=== PATIENT | female | born 1935 | race Caucasian/White ===

== ENCOUNTER 2016-10-21 20:55 | Inpatient (IN) ==
--- NOTE | 2016-10-21 21:51 | Emergency Department Note ---
Disposition Clinical Impression: NSTEMI (non-ST elevation myocardial infarction), Disequilibrium, Fall Disposition: Admitted As Inpatient Condition: Good Time of Disposition: 07:24 Dizziness HPI - General Chief Complaint: ED Dizziness Stated Complaint: dizziness Time Seen by Provider: 10/21/16 21:49 Source: patient, EMS Mode of arrival: ambulatory Limitations: no limitations Nursing Notes Reviewed: Yes Vital Signs Reviewed: Yes - History of Present Illness HPI Narrative: Patient is an 81-year-old female with past medical history of hypertension, hyperlipidemia, diabetes. She presents today due to disequilibrium, mild vertigo, difficulty with going from sitting to standing. This is been going on for about one week. Gradually worsening. She also states that she has had mild dizziness/fogginess. She says that the room is not spinning, but she feels lightheaded. It worsens mildly when she moves her head left and right. Denies any focal weaknesses, numbness, tingling. Denies any chest pain, shortness of breath, nausea, vomiting, fevers, diarrhea, abdominal pain. Denies any previous heart attack or stroke. is present with her and states that yesterday she was very confused which is unlike her. He was afraid that she may have had a stroke. They have not sought any medical care for the past week until today. - Related Data Allergies Allergy/AdvReac Type Severity Reaction Status Date / Time ampicillin Allergy Rash Verified 10/21/16 20:59 Constitutional: Denies: fever Eyes: Denies: eye pain, eye discharge ENT ED: Denies: ear pain, throat pain Cardiovascular: Denies: chest pain, palpitations Respiratory: Denies: cough, dyspnea, wheezes, hemoptysis, stridor Gastrointestinal: Denies: abdominal pain, nausea, vomiting, diarrhea, constipation Genitourinary: Denies: urgency, dysuria, frequency Musculoskeletal: Denies: back pain, neck pain, joint swelling Integumentary: Denies: rash, abrasion, lesions Neurological: Reports: abnormal gait, vertigo. Denies: headache, weakness, numbness, paresthesias, confusion Psychiatric: Denies: anxiety, depression Endocrine: Denies: fatigue Past Medical History - Past Medical History Attestation: Yes The following information was validated with the patient. Medical history: Reports: diabetes, hyperlipidemia, hypertension - Social History Smoking Status: Never smoker Alcohol use: Reports: none Drug use: Reports: none Physical Exam - General Limitations: no limitations General appearance: alert, in no apparent distress - Head Head exam: atraumatic, normocephalic, normal inspection - Eye Eye exam: Present: normal appearance, PERRL, EOMI - ENT ENT exam: normal exam, normal oropharynx, mucous membranes moist - Neck Neck exam: Present: normal inspection, full ROM, trachea midline - Chest Chest inspection: Present: normal inspection, symmetric chest wall rise - Respiratory Respiratory exam: Present: normal lung sounds bilaterally - Cardiovascular Cardiovascular exam: Present: regular rate, normal rhythm, normal heart sounds - Abdominal Exam Abdominal exam: Present: soft, Non-Tender. Absent: tenderness, distention, guarding, rebound, rigidity - Extremities Exam Extremities exam: Present: normal inspection, full ROM. Absent: tenderness, pedal edema - Back Exam Back exam: Present: normal inspection, full ROM. Absent: tenderness - Neurological Exam Neurological exam: Present: alert, oriented X3, CN II-XII intact. Absent: motor sensory deficit - Psychiatric Psychiatric exam: Present: normal affect, normal mood - Skin Skin exam: Present: warm, dry, intact, normal color Course Course Narrative: On my exam, patient vitals were within normal limits. Physical exam showed no focal neurologic deficits. NIH is 0. Due to complaint of dizziness, abnormal gait, will obtain MRI of the head. This is not an acute event and has been going on for about a week. We will also obtain cardiac workup and basic blood work for further evaluation. She was happy and agreeable with this plan. 23:56 Leukocytosis present. elevated trop. WIll give aspirin. Patient still has no chest pain or shortness of breath. Waiting on MRI. MRI negative for any acute intracranial abnormality. ADmitted for NSTEMI. Accepted by Dr. Gallagher. Lovenox 40mg BID started. Vital Signs Temperature 98.5 F 10/21/16 20:57 Pulse Rate 84 10/21/16 20:57 Respiratory Rate 16 10/21/16 20:57 Blood Pressure 137/66 10/21/16 20:57 O2 Sat by Pulse Oximetry 92 L 10/21/16 20:57 Temperature 97.7 F 10/22/16 05:31 Pulse Rate 73 10/22/16 05:31 Respiratory Rate 20 10/22/16 05:31 Blood Pressure 128/81 10/22/16 05:31 O2 Sat by Pulse Oximetry 95 10/22/16 05:31 Oxygen Delivery Oxygen Delivery Room Air Dizziness - MDM Narrative Medical decision making narrative: On my exam, patient vitals were within normal limits. Physical exam showed no focal neurologic deficits. NIH is 0. Due to complaint of dizziness, abnormal gait, will obtain MRI of the head. This is not an acute event and has been going on for about a week. We will also obtain cardiac workup and basic blood work for further evaluation. She was happy and agreeable with this plan. 23:56 Leukocytosis present. elevated trop. WIll give aspirin. Patient still has no chest pain or shortness of breath. Waiting on MRI. MRI negative for any acute intracranial abnormality. ADmitted for NSTEMI. Accepted by Dr. Gallagher. Lovenox 40mg BID started. - Medical Records Medical records reviewed: Yes I reviewed the patient's medical records. - Lab Data Lab results reviewed: Yes I reviewed the patient's lab results. Result diagrams: 10/21/16 21:59 10/21/16 21:59 Lab Results 10/21/16 10/21/16 10/21/16 Range/Units 21:59 21:59 21:59 WBC 16.3 H (4.3-11.1) K/mcL RBC 3.62 L (3.82-4.97) M/mcL Hgb 11.8 (11.5-15.4) g/dL Hct 36.3 (35.3-44.9) % MCV 100.3 H (83.0-100.0) fL MCH 32.6 (28.0-33.3) pg MCHC 32.5 (31.6-35.5) g/dL RDW 13.2 (11.5-14.5) % Plt Count 151 (140-400) K/mcL MPV 11.3 (9.4-12.4) fL Immature Gran % 1.2 (0-4) % Seg Neutrophils % 90.1 % Lymphocytes % 3.4 % Monocytes % 5.2 % Eosinophils % 0.0 % Basophils % 0.1 % Neutrophils # 14.7 H (1.6-8.9) K/mcL Lymphocytes # 0.6 (0.6-4.6) K/mcL Monocytes # 0.8 (0.0-1.3) K/mcL Eosinophils # 0.0 (0.0-0.6) K/mcL Basophils # 0.0 (0.0-0.2) K/mcL PT 14.1 H (9.4-12.1) Seconds INR 1.3 APTT 28.5 (26.0-36.0) Seconds Sodium 135 L (136-145) mEq/L Potassium 4.0 (3.5-4.5) mEq/L Chloride 102 (98-109) mEq/L Carbon Dioxide 22 (19-29) mEq/L BUN 25 H (7-20) mg/dL Creatinine 1.04 (0.57-1.11) mg/dL Est GFR ( Amer) > 60 (> 60) Est GFR (Non-Af Amer) 51 L (> 60) BUN/Creatinine Ratio 24 (6-26) Glucose 237 H (70-99) mg/dL Calculated Osmolality 292 (280-300) Calcium 9.0 (8.6-10.8) mg/dL Troponin I (0-0.03) ng/mL 10/21/16 Range/Units 21:59 WBC (4.3-11.1) K/mcL RBC (3.82-4.97) M/mcL Hgb (11.5-15.4) g/dL Hct (35.3-44.9) % MCV (83.0-100.0) fL MCH (28.0-33.3) pg MCHC (31.6-35.5) g/dL RDW (11.5-14.5) % Plt Count (140-400) K/mcL MPV (9.4-12.4) fL Immature Gran % (0-4) % Seg Neutrophils % % Lymphocytes % % Monocytes % % Eosinophils % % Basophils % % Neutrophils # (1.6-8.9) K/mcL Lymphocytes # (0.6-4.6) K/mcL Monocytes # (0.0-1.3) K/mcL Eosinophils # (0.0-0.6) K/mcL Basophils # (0.0-0.2) K/mcL PT (9.4-12.1) Seconds INR APTT (26.0-36.0) Seconds Sodium (136-145) mEq/L Potassium (3.5-4.5) mEq/L Chloride (98-109) mEq/L Carbon Dioxide (19-29) mEq/L BUN (7-20) mg/dL Creatinine (0.57-1.11) mg/dL Est GFR ( Amer) (> 60) Est GFR (Non-Af Amer) (> 60) BUN/Creatinine Ratio (6-26) Glucose (70-99) mg/dL Calculated Osmolality (280-300) Calcium (8.6-10.8) mg/dL Troponin I 0.17 H* (0-0.03) ng/mL - Radiology Data Radiology results reviewed: Yes I reviewed the patient's radiology results. Chest X-Ray 10/21/16 21:50 IMPRESSION: Borderline cardiomegaly and probable COPD, no superimposed acute pulmonary process. D/ / Landen Simons MD / Landen Simons MD Interpreting Provider: Landen Simons MD Brain MRI 10/22/16 00:10 IMPRESSION: Volume loss with mild chronic white matter microvascular ischemic change. D/ / Garry Escobar MD / Garry Escobar MD Interpreting Provider: Garry Escobar MD - EKG Data EKG attestation: Yes I reviewed and interpreted this EKG. EKG results narrative: 10/21/16 at 21:10. Normal sinus rhythm. Rate 80. NM interval 100. QTC 423. QRS 85. Mild left axis deviation. Possible right bundle branch block evident in V1, V2. No acute ST elevation or depression. Unchanged from previous EKG in . Critical Care Time Critical Care Time: Yes Total Critical Care Time: 40 Attestation: Critical care performed: Time is exclusive of separately billable procedures. Time includes: direct patient care, patient reassessment, coordination of patient care, interpretation of data (laboratory data, radiology data, and respiratory data), review of patient's medical records, medical consultation and documentation of patient care. Procedures included in critical care time: Procedures excluded from critical care time: S.Huber - [place] Situation: Demographics, MOA Background: Presenting Complaint, Relevant PMH, Meds, & Allergies Assessment: Vital Signs, Course and respsone to treatment, Exam Concerns, Patient/Family Expectation, Pertinant Lab Results, Outstanding Labs Recommendation: Barrier(s) to disposition, Recommendation based on pending studies, treatments, or consults SMagaly Report Given to: Dr. Gallagher Attestation Statement - Attestation Attestation: I, Lloyd Valles MD, personally performed a history and physical exam of the patient and discussed their management with the resident. I reviewed the resident's note and agree with the documented findings, medical decision making , and plan of care. 81-year-old female who presents to the emergency department with a complaint of some dizziness and vertigo and difficulty with balance. She states this started about a week ago seems to just be gradually getting worse. She does admit to some mild headache. No tinnitus. No fever. No rash or stiff neck. No blurred vision or double vision. No difficulty with speech or swallowing. No focal numbness tingling or weakness. Patient states that since the symptoms started she has been unable to walk without assistance. Prior to the symptoms she was able to ambulate without difficulty. She denies any chest pain or palpitations or shortness of breath. No nausea or vomiting or diarrhea. No abdominal pain. No urinary symptoms. On examination patient is a well-developed well-nourished elderly female in no acute distress. She is alert and oriented 3. There is no cyanosis or diaphoresis. Neck is supple and nontender with full range of motion. She does have a left carotid bruit. Chest is nontender to palpation. Breath sounds are clear and equal bilaterally. Heart regular rate and rhythm. Abdomen soft and nontender with normal bowel sounds. Equal solar manager strength bilaterally. No gross focal neurological deficits. Labs reviewed. Patient noted to have an elevated troponin at 0.17. No acute changes on EKG. Chest x-ray shows borderline cardiomegaly and COPD no acute abnormality. MRI of the brain showed some chronic microvascular ischemic changes but no acute abnormality. Due to the elevated troponin and we will consult the hospitalist for admission.
[2016-10-21 22:06] LABS: Basophils % 0.1 %; Hematocrit 36.3 % (35.3-44.9); Hemoglobin 11.8 g/dL (11.5-15.4); Immature Granulocytes % 1.2 % (0-4); Lymphocytes # 0.6 K/mcL (0.6-4.6); Lymphocytes % 3.4 %; Mean Corpuscular HGB Conc 32.5 g/dL (31.6-35.5); Mean Corpuscular Hemoglobin 32.6 pg (28.0-33.3); Mean Corpuscular Volume 100.3 fL (83.0-100.0); Mean Platelet Volume 11.3 fL (9.4-12.4); Monocytes # 0.8 K/mcL (0.0-1.3); Monocytes % 5.2 %; Neutrophils # 14.7 K/mcL (1.6-8.9); Platelet Count 151 K/mcL (140-400); Red Blood Count 3.62 M/mcL (3.82-4.97); Red Cell Distribution Width 13.2 % (11.5-14.5); Segmented Neutrophils % 90.1 %
[2016-10-21 22:10] LABS: INR 1.3; Prothrombin Time 14.1 Seconds (9.4-12.1)
[2016-10-21 22:12] LABS: Activated Partial Thrombo Time 28.5 Seconds (26.0-36.0)
[2016-10-21 22:18] LABS: BUN/Creatinine Ratio 24 (6-26); Blood Urea Nitrogen 25 mg/dL (7-20); Carbon Dioxide 22 mEq/L (19-29); Chloride 102 mEq/L (98-109); Glucose 237 mg/dL (70-99); Osmolality,Calculated 292 (280-300); Sodium 135 mEq/L (136-145); eGFR For African Americans > 60 (> 60); eGFR For Non-African Americans 51 (> 60)
[2016-10-21] MEDS ORDERED: Aspirin 325 MG TABLET PO ONE (22:50)
[2016-10-22] MEDS ORDERED: Nitroglycerin 0.4 MG TAB.SUBL SL PRN (05:31)
[2016-10-22] MEDS ORDERED: Naloxone 0.4 MG/ML INJ IVP PRN (05:31)
[2016-10-22] MEDS ORDERED: *HR* Morphine 2 MG/ML SYRINGE IVP PRN ×2 (05:31→14:07)
[2016-10-22] MEDS ORDERED: Dextrose Gel 15 GM PO PRN ×2 (05:31)
[2016-10-22] MEDS ORDERED: Acetaminophen 325 MG TABLET PO PRN (05:31)
[2016-10-22] MEDS ORDERED: D5% in Water 1,000 ML IV PRN (05:31)
[2016-10-22] MEDS ORDERED: *HR* Dextrose 50 % in Water (Syg) 50 ML SYRINGE IVP PRN (05:31)
--- NOTE | 2016-10-22 05:57 | Internal Med History&Physical ---
<Shady Mcgowan - Last Filed: 10/22/16 05:48> Date of Encounter: 10/22/16 Time of Encounter: 04:30 Assessment and Plan (1) Sepsis Status: Acute Patient presents with elevated white count of 16.3 with left shift as well as tachypnea at 20. Given patient's presentation of weakness and confusion this is concerning for sepsis of currently unknown etiology (currently suspicious for urinary tract infection). We will hold fluids until further assessment patient cardiac function is made 1 given empiric ceftriaxone for suspected UTI We will obtain lactic acid Qualifiers: Sepsis type: sepsis due to unspecified organism Qualified Code(s): A41.9 - Sepsis, unspecified organism (2) Elevated troponin Status: Acute Patient has elevated troponin of 0.17 admission in size on EKG concerning for decreased pulses and [address] depressions in V2 through V6. This elevation troponins could be due to intrinsic heart disease/coronary artery disease, sepsis, undiagnosed arrhythmia, stroke, or other currently undiagnosed problem. We will continue to trend troponins We will obtain EKG later in the morning We will obtain echocardiogram 40 mg Lovenox twice a day Continuous telemetry Consider cardiology consult if continued cardiac concerns (3) Suspected UTI Status: Acute Patient description of generalized weakness and confusion which is concerning for a patient in her 80s for possible infection. Obtain UA Empirically start ceftriaxone (4) Disequilibrium Status: Acute Patient describes 3-4 days of disequilibrium when she stands and feeling of walking backwards We will obtain MRA of brain/neck Meclizine 12 mg once Meclizine 12.5 mg 3 times a dayConsider neurology consult if continued conservative for disequilibrium or abnormal findings on MRA (5) DVT prophylaxis Status: Acute Patient was given 40 mg Lovenox twice a day due to concern of NSTEMI Internal Medicine - H&P: HPI Chief complaint: Generalized weakness and dysequilibrium Admitted From: Home Plans for Post Hospital Care: Home History of present illness: Ms. Rockwell is a 81 year old female with prior medical history of diabetes, hypertension, and hyperlipidemia who presents to [place] after 3 days of worsening generalized weakness, disequilibrium, and mild confusion. The patient states that starting 3 days ago she began having some disequilibrium and describes "stepping backwards" when she stands up or tries to walk. She admits that she has fallen last time being Wednesday but does not recall hitting her head or body parts. She describes feeling as being off balance, but not of the room spinning. She reports she has had a cough but this is been for quite some time, denies shortness of breath, denies chest pain, denies palpitations, denies fever, denies tinnitus, reports exertional dyspnea, denies dysuria reports orthostatic dizziness, reports lightheadedness, and possible nausea ( patient and her disagree on this). Past Med Surg Social Fam HX - Past Medical History Medical history: diabetes, hyperlipidemia, hypertension - Social History Smoking Status: Never smoker Alcohol use: none Drug use: none Internal Medicine - H&P: Meds Calcium Carbonate/Vitamin D3 [Calcium 500 + Vit D Caplet] 1 each PO DAILY [History] Cetirizine HCl [Zyrtec] 10 mg PO DAILY 10/22/16 [History] Levothyroxine Sodium 50 mcg PO DAILY 10/22/16 [History] Metformin HCl [Glucophage] 1,000 mg PO BID 10/22/16 [History] Metoprolol XL (24 HR) Succ [Toprol Xl] 25 mg PO DAILY 10/22/16 [History] Multivit-Min/FA/Calcium/Vit K1 [Hm One Daily Women's 50+] 1 each PO DAILY [History] Pravastatin Sodium [Pravachol] 40 mg PO DAILY 10/22/16 [History] SitaGLIPtin [Januvia] 100 mg PO DAILY 10/22/16 [History] Aspirin 81 mg PO DAILY tab.chew 10/23/16 [Rx] Magnesium Oxide [Mag-Ox] 400 mg PO DAILY #30 tablet 10/23/16 [Rx] Apixaban [Eliquis] 2.5 mg PO BID tablet 10/27/16 [Rx] Metoprolol [Lopressor] 25 mg PO BID tablet 10/27/16 [Rx] Allergies ampicillin Allergy (Verified 10/22/16 08:15) Rash All Systems PM: A 10-system review of systems was performed and is negative for pertinent findings except as documented above in the HPI. - Constitutional Vitals: Temp Pulse Resp BP Pulse Ox 98.5 F 73 0 0/0 94 L 10/21/16 20:57 10/22/16 01:32 10/22/16 04:21 10/22/16 04:21 10/22/16 01:32 Exam: General: Cooperative, pleasant, no acute distress, alert and oriented 3, answers questions appropriately Head: Normocephalic, atraumatic Eye: Conjunctiva pink, sclera anicteric, EOMI, PERRL Neck: Supple, trachea midline, mucosa moist, no LAD palpated Respiratory: No accessory muscle usage, clear to auscultation bilaterally, no wheezes/rhonchi/rales appreciated Cardiovascular: Regular rate and rhythm, S1 and S2 present, no murmurs/rubs/ gallops/clicks appreciated GI/abdominal: Nondistended, nontender, soft, normal bowel sounds, no peritoneal signs Extremities: No calf tenderness, noncyanotic, no pedal edema appreciated, warm, lower extremity pulses palpable and symmetrical Neurological: Alert and oriented 3, no facial droop, no focal deficits, cranial nerves II through XII intact, sensation intact bilaterally to light touch, check intact in upper and lower extremities, rapid alternating smoothened with a tremor, finger-nose accurate and smooth, pronator drift normal , heel to prajapati smooth and accurate Skin: Dry, intact, normal color Internal Med - H&P Results - Labs CBC & Chem 7: 10/21/16 21:59 10/21/16 21:59 <Ez Gallagher - Last Filed: 10/28/16 01:46> Assessment and Plan (1) Postural dizziness with presyncope Status: Acute . (2) Demand myocardial infarction Status: Acute . (3) Non-ST elevation myocardial infarction (NSTEMI) due to mismatch of myocardial oxygen supply and demand Status: Acute . (4) Elevated troponin I measurement Status: Acute . (5) HTN (hypertension) Status: Chronic . Qualifiers: Hypertension type: essential hypertension Qualified Code(s): I10 - Essential (primary) hypertension (6) HLD (hyperlipidemia) Status: Chronic . Qualifiers: Hyperlipidemia type: mixed hyperlipidemia Qualified Code(s): E78.2 - Mixed hyperlipidemia (7) Type 2 diabetes mellitus Status: Chronic . Qualifiers: Diabetes mellitus complication status: with unspecified complications Diabetes mellitus senior care insulin use: without senior care use Qualified Code( s): E11.8 - Type 2 diabetes mellitus with unspecified complications (8) SIRS (systemic inflammatory response syndrome) Status: Acute . (9) Acute kidney injury superimposed on chronic kidney disease Status: Acute . (10) COPD suggested by initial evaluation Status: Acute . (11) Disequilibrium Status: Acute . (12) Fall Status: Acute . Qualifiers: Encounter type: initial encounter Qualified Code(s): W19.XXXA - Unspecified fall, initial encounter (13) Hypothyroidism Status: Chronic .. Qualifiers: Hypothyroidism type: acquired Qualified Code(s): E03.9 - Hypothyroidism, unspecified (14) COPD with hypoxia Status: Chronic . (15) Macrocytosis without anemia Status: Chronic . Internal Medicine - H&P: HPI Admitted From: Emergency Dept History of present illness: Ms. Rockwell is a 81 year old female is admitted to [facility] via the emergency department with chief complaint of "dizziness", she describes difficulty standing, walking with balance difficulty and mental fogginess for approximately one week. Her disequilibrium with mild vertigo and difficulty with moving from sitting to standing positions with inducible postural lightheadness/presyncope was concerning. The patient's age and past medical history including risk factors of hypertension hyperlipidemia and diabetes placed her at increased risks for a cardiovascular insult. Indeed initial screening studies found a troponin elevated at 0.17 suggesting the potential for demand ischemic event and type II non-ST elevation myocardial infarction versus acute SECOND OPERATOR insult. Workup and treatments will proceed comprehensively. The patient was visited and interviewed and examined. I examined this patient and my medical decision-making was reviewed with the Resident Physician, Dr. Shady Mcgowan. For this encounter, I have reviewed the documentation, treatment plan, and medical decision making. I agree with the documented findings, disposition and treatment plan as described except to the extent set forth below. Cumulative laboratory and radiographic database was reviewed, considered and discussed. Given the patient's presenting concerns, past medical history, clinical findings and symptoms, she is admitted at this time to undergo further evaluation and disposition. All Systems PM: A 10-system review of systems was performed and is negative for pertinent findings except as documented above in the HPI. - Constitutional Vitals: Temp Pulse Resp BP Pulse Ox 97.7 F 55 16 112/66 96 10/27/16 15:47 10/27/16 15:47 10/27/16 15:47 10/27/16 15:47 10/27/16 15:47 Internal Med - H&P Results - Labs CBC & Chem 7: 10/27/16 04:28 10/27/16 04:28 Labs: Short CBC 10/27/16 Range/Units 04:28 WBC 7.9 (4.3-11.1) K/mcL Hgb 11.1 L (11.5-15.4) g/dL Hct 36.3 (35.3-44.9) % Plt Count 182 (140-400) K/mcL BMP 10/27/16 04:28 Sodium 139 Potassium 4.3 Chloride 108 Carbon Dioxide 24 BUN 17 Creatinine 0.73 Glucose 122 H Calcium 7.8 L Abnormal lab results RBC 3.50 M/mcL (3.82-4.97) L 10/27/16 04:28 Hgb 11.1 g/dL (11.5-15.4) L 10/27/16 04:28 MCV 103.7 fL (83.0-100.0) H 10/27/16 04:28 MCHC 30.6 g/dL (31.6-35.5) L 10/27/16 04:28 PT 13.7 Seconds (9.4-12.1) H 10/22/16 06:56 Glucose 122 mg/dL (70-99) H 10/27/16 04:28 POC Glucose 108 (58-89) H 10/26/16 21:22 Hemoglobin A1c 6.6 % (-5.6) H 10/22/16 06:56 Calcium 7.8 mg/dL (8.6-10.8) L 10/27/16 04:28 Magnesium 1.5 mg/dL (1.6-2.6) L 10/23/16 19:33 Troponin I 0.08 ng/mL (0-0.03) H* 10/24/16 08:46 Albumin 3.0 g/dL (3.5-5.0) L 10/22/16 06:56 Globulin 3.9 g/dL (2.4-3.5) H 10/22/16 06:56 Albumin/Globulin Ratio 0.8 (1.1-2.2) L 10/22/16 06:56 Urine Clarity Turbid (Clear) A 10/22/16 06:33 Urine Protein 100 mg/dL (Neg-Trace) H 10/22/16 06:33 Urine Ketones 15 mg/dL (Negative) H 10/22/16 06:33 Urine Blood Large (Negative) H 10/22/16 06:33 Urine Nitrite Positive (Negative) A 10/22/16 06:33 Ur Leukocyte Esterase Large (Negative) H 10/22/16 06:33 Urine Microscopic RBC 15-30 per hpf (0-3) H 10/22/16 06:33 Urine Microscopic WBC TNTC per hpf (0-3) H 10/22/16 06:33 Ur Squamous Epith Cells Many per lpf (None-Few) H 10/22/16 06:33 Urine Bacteria Many per hpf (None-Few) H 10/22/16 06:33 Laboratory Last Values WBC 7.9 K/mcL (4.3-11.1) 10/27/16 04:28 RBC 3.50 M/mcL (3.82-4.97) L 10/27/16 04:28 Hgb 11.1 g/dL (11.5-15.4) L 10/27/16 04:28 Hct 36.3 % (35.3-44.9) 10/27/16 04:28 MCV 103.7 fL (83.0-100.0) H 10/27/16 04:28 MCH 31.7 pg (28.0-33.3) 10/27/16 04:28 MCHC 30.6 g/dL (31.6-35.5) L 10/27/16 04:28 RDW 13.3 % (11.5-14.5) 10/27/16 04:28 Plt Count 182 K/mcL (140-400) 10/27/16 04:28 MPV 12.0 fL (9.4-12.4) 10/27/16 04:28 Immature Gran % 0.7 % (0-4) 10/26/16 11:34 Seg Neutrophils % 75.6 % 10/26/16 11:34 Lymphocytes % 14.0 % 10/26/16 11:34 Monocytes % 6.4 % 10/26/16 11:34 Eosinophils % 2.9 % 10/26/16 11:34 Basophils % 0.4 % 10/26/16 11:34 Neutrophils # 6.2 K/mcL (1.6-8.9) 10/26/16 11:34 Lymphocytes # 1.2 K/mcL (0.6-4.6) 10/26/16 11:34 Monocytes # 0.5 K/mcL (0.0-1.3) 10/26/16 11:34 Eosinophils # 0.2 K/mcL (0.0-0.6) 10/26/16 11:34 Basophils # 0.0 K/mcL (0.0-0.2) 10/26/16 11:34 PT 13.7 Seconds (9.4-12.1) H 10/22/16 06:56 INR 1.3 10/22/16 06:56 APTT 34.5 Seconds (26.0-36.0) 10/22/16 06:56 Sodium 139 mEq/L (136-145) 10/27/16 04:28 Potassium 4.3 mEq/L (3.5-4.5) 10/27/16 04:28 Chloride 108 mEq/L (98-109) 10/27/16 04:28 Carbon Dioxide 24 mEq/L (19-29) 10/27/16 04:28 BUN 17 mg/dL (7-20) 10/27/16 04:28 Creatinine 0.73 mg/dL (0.57-1.11) 10/27/16 04:28 Est GFR ( Amer) > 60 (> 60) 10/27/16 04:28 Est GFR (Non-Af Amer) > 60 (> 60) 10/27/16 04:28 BUN/Creatinine Ratio 23 (6-26) 10/27/16 04:28 Glucose 122 mg/dL (70-99) H 10/27/16 04:28 POC Glucose 108 (58-89) H 10/26/16 21:22 Est Mean Plasma Glucose 143 mg/dl 10/22/16 06:56 Hemoglobin A1c 6.6 % (-5.6) H 10/22/16 06:56 Calculated Osmolality 291 (280-300) 10/27/16 04:28 Lactic Acid 1.9 mmol/L (0.5-2.2) 10/22/16 06:56 Calcium 7.8 mg/dL (8.6-10.8) L 10/27/16 04:28 Phosphorus 3.1 mg/dL (2.3-4.7) 10/22/16 06:56 Magnesium 1.5 mg/dL (1.6-2.6) L 10/23/16 19:33 Total Bilirubin 0.7 mg/dL (0.2-1.2) 10/22/16 06:56 AST 17 Units/L (5-34) 10/22/16 06:56 ALT 15 Units/L (0-55) 10/22/16 06:56 Alkaline Phosphatase 60 Units/L (38-126) 10/22/16 06:56 Troponin I 0.08 ng/mL (0-0.03) H* 10/24/16 08:46 Serum Total Protein 6.9 g/dL (6.0-8.3) 10/22/16 06:56 Albumin 3.0 g/dL (3.5-5.0) L 10/22/16 06:56 Globulin 3.9 g/dL (2.4-3.5) H 10/22/16 06:56 Albumin/Globulin Ratio 0.8 (1.1-2.2) L 10/22/16 06:56 Triglycerides 100 mg/dL (< 150) 10/22/16 06:56 Cholesterol 150 mg/dL (< 200) 10/22/16 06:56 LDL Cholesterol, Calc 79 mg/dL (0-99) 10/22/16 06:56 VLDL Cholesterol, Calc 20 mg/dL (< 31) 10/22/16 06:56 HDL Cholesterol 51 mg/dL (40-59) 10/22/16 06:56 Cholesterol/HDL Ratio 2.9 (0-4.9) 10/22/16 06:56 Vitamin B12 607 pg/mL (213-816) 10/22/16 13:33 Folate 17.2 ng/mL (7.0-31.4) 10/22/16 13:33 TSH 1.087 mcIU/mL (0.350-4.840) 10/22/16 06:56 Urine Color Dark Yellow (Yellow) 10/22/16 06:33 Urine Clarity Turbid (Clear) A 10/22/16 06:33 Urine pH 5.5 pH Units (5.0-8.0) 10/22/16 06:33 Ur Specific [place] 1.024 (1.010-1.025) 10/22/16 06:33 Urine Protein 100 mg/dL (Neg-Trace) H 10/22/16 06:33 Urine Glucose (UA) Normal mg/dL (Normal) 10/22/16 06:33 Urine Ketones 15 mg/dL (Negative) H 10/22/16 06:33 Urine Blood Large (Negative) H 10/22/16 06:33 Urine Nitrite Positive (Negative) A 10/22/16 06:33 Urine Bilirubin Negative (Negative) 10/22/16 06:33 Urine Urobilinogen Normal mg/dL (Normal) 10/22/16 06:33 Ur Leukocyte Esterase Large (Negative) H 10/22/16 06:33 Urine Microscopic RBC 15-30 per hpf (0-3) H 10/22/16 06:33 Urine Microscopic WBC TNTC per hpf (0-3) H 10/22/16 06:33 Ur Squamous Epith Cells Many per lpf (None-Few) H 10/22/16 06:33 Urine Bacteria Many per hpf (None-Few) H 10/22/16 06:33 Hyaline Casts None Seen per lpf (None-Few) 10/22/16 06:33 - Impressions Chest X-Ray 10/21/16 21:50 IMPRESSION: Borderline cardiomegaly and probable COPD, no superimposed acute pulmonary process. D/ / Landen Simons MD / Landen Simons MD Interpreting Provider: Landen Simons MD Brain MRI 10/22/16 00:10 IMPRESSION: Volume loss with mild chronic white matter microvascular ischemic change. D/ / Garry Escobar MD / Garry Escobar MD Interpreting Provider: Garry Escobar MD Head MRA 10/22/16 05:45 IMPRESSION: No flow-limiting stenosis of the cervical carotid or vertebral arteries. No intracranial flow-limiting stenosis or aneurysm. D/ / 10/22/2016 11:17:52 Alex Anderson MD / macie Interpreting Provider: Alex Anderson MD Neck MRA 10/22/16 05:45 IMPRESSION: No flow-limiting stenosis of the cervical carotid or vertebral arteries. No intracranial flow-limiting stenosis or aneurysm. D/ / 10/22/2016 11:17:52 Alex Anderson MD / macie Interpreting Provider: Alex Anderson MD - Attending Attestation My signature below is to certify that this patient is under my care and that I, or the Resident Physician working with me, has had a [id number] encounter with this patient. Plan of care has been reviewed and discussed in detail with the patient. Questions were addressed. Advance care directive discussion briefly addressed. The patient does not be clear in the healthcare restrictions at this time. Outpatient medications schedules will be reviewed, confirmed and facilitated as appropriate. Reconciliation of home treatments including adjustments, substitutions and reintroduction into the treatment regimen will address necessary maintenance therapies for chronic pre-existing medical conditions. Hospital course dictated by clinical findings, treatment response and potential consultative interventions. Consultative opinions will be sought as clinical circumstances justify. The patient is at risk for further acute clinical decline and morbidity given this presenting chief complaint, her advanced age and comorbidities. Condition is serious. Prognosis is guarded. CODE STATUS is full.
[2016-10-22] MEDS ORDERED: *HR* Enoxaparin 40 MG/0.4 ML SYRINGE SQ SCH (06:00)
[2016-10-22 06:44] LABS: Bilirubin,Urine Negative (Negative); Blood,Urine Large (Negative); Clarity,Urine Turbid (Clear); Color,Urine Dark Yellow (Yellow); Glucose,Urine (UA) Normal (Normal); Ketones,Urine 15 mg/dL (Negative); Leukocyte Esterase,Urine Large (Negative); Nitrite,Urine Positive (Negative); PH,Urine 5.5 pH Units (5.0-8.0); Protein,Urine 100 mg/dL (Neg-Trace); Specific Gravity,Urine 1.024 (1.010-1.025); Urobilinogen,Urine Normal (Normal)
[2016-10-22 06:46] LABS: Bacteria,Urine Many per hpf (None-Few); Hyaline Casts,Urine None Seen per lpf (None-Few); RBC,Urine 15-30 per hpf (0-3); Squamous Epithelial Cell,Urine Many per lpf (None-Few); WBC,Urine TNTC per hpf (0-3)
[2016-10-22 07:14] LABS: INR 1.3; Prothrombin Time 13.7 Seconds (9.4-12.1)
[2016-10-22 07:17] LABS: Activated Partial Thrombo Time 34.5 Seconds (26.0-36.0)
[2016-10-22 07:19] LABS: Basophils % 0.1 %; Eosinophils # 0.1 K/mcL (0.0-0.6); Eosinophils % 0.7 %; Hematocrit 38.4 % (35.3-44.9); Hemoglobin 12.1 g/dL (11.5-15.4); Immature Granulocytes % 0.6 % (0-4); Lymphocytes # 1.4 K/mcL (0.6-4.6); Lymphocytes % 9.5 %; Mean Corpuscular HGB Conc 31.5 g/dL (31.6-35.5); Mean Corpuscular Hemoglobin 32.4 pg (28.0-33.3); Mean Corpuscular Volume 102.7 fL (83.0-100.0); Mean Platelet Volume 11.9 fL (9.4-12.4); Monocytes # 0.8 K/mcL (0.0-1.3); Monocytes % 5.9 %; Neutrophils # 11.9 K/mcL (1.6-8.9); Platelet Count 146 K/mcL (140-400); Red Blood Count 3.74 M/mcL (3.82-4.97); Red Cell Distribution Width 13.3 % (11.5-14.5); Segmented Neutrophils % 83.2 %
[2016-10-22 07:25] LABS: Alanine Aminotransferase 15 Units/L (0-55); Albumin/Globulin Ratio 0.8 (1.1-2.2); Alkaline Phosphatase 60 Units/L (38-126); Aspartate Amino Transferase 17 Units/L (5-34); BUN/Creatinine Ratio 27 (6-26); Bilirubin,Total 0.7 mg/dL (0.2-1.2); Blood Urea Nitrogen 28 mg/dL (7-20); Calcium 8.9 mg/dL (8.6-10.8); Carbon Dioxide 27 mEq/L (19-29); Chloride 101 mEq/L (98-109); Chol/HDL Ratio 2.9 (0-4.9); Cholesterol 150 mg/dL (< 200); Globulin 3.9 g/dL (2.4-3.5); Glucose 231 mg/dL (70-99); HDL Cholesterol 51 mg/dL (40-59); LDL Cholesterol,Calculated 79 mg/dL (0-99); Magnesium 1.5 mg/dL (1.6-2.6); Osmolality,Calculated 295 (280-300); Phosphorous 3.1 mg/dL (2.3-4.7); Potassium 3.7 mEq/L (3.5-4.5); Sodium 136 mEq/L (136-145); Total Protein 6.9 g/dL (6.0-8.3); Triglycerides 100 mg/dL (< 150); eGFR For African Americans > 60 (> 60); eGFR For Non-African Americans 52 (> 60)
[2016-10-22 07:46] LABS: Thyroid Stimulating Hormone 1.087 mcIU/mL (0.350-4.840)
[2016-10-22 07:54] LABS: Hemoglobin A1C 6.6 %
[2016-10-22] MEDS: Insulin LISPRO 300 UNITS/3 ML VIAL SQ SCH ×4 (08:00→20:39)
[2016-10-22] MEDS: Pantoprazole 40 MG VIAL IVP SCH (08:00)
[2016-10-22] MEDS: Aspirin 81 MG TAB.CHEW PO SCH (08:00)
--- NOTE | 2016-10-22 08:20 | Internal Med Progress Note ---
Date of Encounter: 10/22/16 Time of Encounter: 08:17 - Assessment and plan (1) Suspected UTI Current Visit: Yes Status: Acute Assessment and plan: Possible sepsis secondary to urinary tract infection WBC 16.3 with tachypnea more than 22 Continue Rocephin day 2 await cultures final report, continue IV fluids (2) Elevated troponin Current Visit: Yes Status: Acute Assessment and plan: Likely secondary to demand ischemia Discontinue full dose of Lovenox and order Lovenox only for DVT prophylaxis Monitor troponins EKG showed small ST depression in V5 Echocardiogram ordered to assess possible wall motion abnormalities Consider cardiology consult (3) Disequilibrium Current Visit: Yes Status: Acute Assessment and plan: Possibly related to dehydration and UTI (4) Fall Current Visit: Yes Status: Acute Assessment and plan: No evidence of fractures on the MRI of the head Qualifiers: Qualified Code(s): W19.XXXD - Unspecified fall, subsequent encounter (5) Diabetes Current Visit: Yes Status: Acute Assessment and plan: Continue insulin sliding scale Qualifiers: Diabetes mellitus type: type 2 Diabetes mellitus complication status: without complication Diabetes mellitus [facility] insulin use: without terminal system operator use Qualified Code(s): E11.9 - Type 2 diabetes mellitus without complications - Subjective Interval history: The patient is not having any dizziness, feels slightly stronger. Denies any chest pain or shortness of breath, no abdominal pain, no dysuria. No diarrhea - Constitutional Vitals: Temp Pulse Resp BP Pulse Ox 97.7 F 68 18 115/71 96 10/22/16 07:41 10/22/16 07:41 10/22/16 07:41 10/22/16 07:41 10/22/16 07:41 General appearance: Present: A&O X 3 - Head Head exam: Present: atraumatic, normocephalic - Eye Eye exam: Present: PERRL, conjuntiva pink, sclera anicteric Pupils: Present: PERRL - Neck Neck exam general surgery: Present: supple, trachea midline. Absent: lymphadenopathy - Respiratory Respiratory exam: Present: CTAB. Absent: accessory muscle use, rales, rhonchi, wheezes - Cardiovascular Cardiovascular exam: Present: RRR, +S1, +S2. Absent: diastolic murmur, gallop, rubs, systolic murmur - GI/Abdominal GI/Abdominal exam: Present: normal bowel sounds, soft, no peritoneal signs. Absent: distended, tenderness - Extremities Exam Extremities exam: Present: warm, radial pulses palpable and symetrical. Absent : calf tenderness, cyanotic, pedal edema - Neurological Exam Neurological exam: Present: CN II-XII intact, oriented X3, no focal deficits. Absent: pronater drift, facial droop, speech deficit - Skin Skin exam: Present: dry, intact Internal Medicine: Result - Labs CBC & Chem 7: 10/22/16 06:56 10/22/16 06:56 Labs: Short CBC 10/22/16 Range/Units 06:56 WBC 14.3 H (4.3-11.1) K/mcL Hgb 12.1 (11.5-15.4) g/dL Hct 38.4 (35.3-44.9) % Plt Count 146 (140-400) K/mcL Neutrophils # 11.9 H (1.6-8.9) K/mcL BMP 10/22/16 06:56 Sodium 136 Potassium 3.7 Chloride 101 Carbon Dioxide 27 BUN 28 H Creatinine 1.02 Glucose 231 H Calcium 8.9 Cardiac Enzymes 10/22/16 Range/Units 06:56 Troponin I 0.08 H* (0-0.03) ng/mL Liver Function 10/22/16 Range/Units 06:56 Total Bilirubin 0.7 (0.2-1.2) mg/dL AST 17 (5-34) Units/L ALT 15 (0-55) Units/L Alkaline Phosphatase 60 (38-126) Units/L Albumin 3.0 L (3.5-5.0) g/dL Urine 10/22/16 Range/Units 06:33 Urine Color Dark Yellow (Yellow) Urine Clarity Turbid A (Clear) Urine pH 5.5 (5.0-8.0) pH Units Ur Specific [place] 1.024 (1.010-1.025) Urine Protein 100 H (Neg-Trace) mg/dL Urine Glucose (UA) Normal (Normal) mg/dL - ABG Interpretation ABG results: PT/INR, D-dimer PT 13.7 Seconds (9.4-12.1) H 10/22/16 06:56 Consult Discharge Plan - Plan Referrals: NO,PCP [Primary Care Provider] -
--- NOTE | 2016-10-22 14:16 | Electrocardiograph Report ---
[place] [address] Test Date: 2016-10-21 Pat Name: Ester Rockwell Department: 104 Room: 2N1 Gender: F Corporate Secretary: : 1935 Requested By: Luca Price Order Number: [id number] Reading MD: Michael Jean-Baptiste MD Measurements Intervals [place] Rate: 80 P: 83 TN: 100 QRS: 6 QRSD: 85 T: 21 QT: 387 QTc: 423 Interpretive Statements SINUS RHYTHM WITH SHORT TN INTERVAL WITH OCCASIONAL SUPRAVENTRICULAR PREMATURE COMPLEXES Electronically Signed On 10-22-2016 14:15:38 EDT by Michael Jean-Baptiste MD
[2016-10-22 16:29] LABS: Folate 17.2 ng/mL (7.0-31.4)
[2016-10-22] MEDS: *HR* Metformin 500 MG TABLET PO SCH (20:25)
[2016-10-22] MEDS: Lisinopril 20 MG TABLET PO SCH (20:25)
[2016-10-22] MEDS: Magnesium Oxide 400 MG TABLET PO SCH (20:25)
[2016-10-22] MEDS ORDERED: Insulin LISPRO 300 UNITS/3 ML VIAL SQ SCH (21:00)
[2016-10-23 05:11] LABS: Hematocrit 35.2 % (35.3-44.9); Mean Corpuscular HGB Conc 31.3 g/dL (31.6-35.5); Mean Corpuscular Hemoglobin 31.7 pg (28.0-33.3); Mean Corpuscular Volume 101.4 fL (83.0-100.0); Mean Platelet Volume 12.2 fL (9.4-12.4); Platelet Count 133 K/mcL (140-400); Red Blood Count 3.47 M/mcL (3.82-4.97); Red Cell Distribution Width 13.3 % (11.5-14.5)
[2016-10-23 05:35] LABS: BUN/Creatinine Ratio 27 (6-26); Blood Urea Nitrogen 23 mg/dL (7-20); Calcium 8.6 mg/dL (8.6-10.8); Carbon Dioxide 25 mEq/L (19-29); Chloride 103 mEq/L (98-109); Glucose 190 mg/dL (70-99); Osmolality,Calculated 295 (280-300); Potassium 3.4 mEq/L (3.5-4.5); Sodium 138 mEq/L (136-145); eGFR For African Americans > 60 (> 60); eGFR For Non-African Americans > 60 (> 60)
[2016-10-23] MEDS: *HR* Enoxaparin 40 MG/0.4 ML SYRINGE SQ SCH (05:43)
[2016-10-23] MEDS: Lisinopril 20 MG TABLET PO SCH (08:40)
[2016-10-23] MEDS: Magnesium Oxide 400 MG TABLET PO SCH ×2 (08:41→20:24)
[2016-10-23] MEDS: Aspirin 81 MG TAB.CHEW PO SCH (08:42)
[2016-10-23] MEDS: Pantoprazole 40 MG VIAL IVP SCH (08:42)
[2016-10-23] MEDS: *HR* Metformin 500 MG TABLET PO SCH ×2 (08:42→20:24)
[2016-10-23] MEDS: Insulin LISPRO 300 UNITS/3 ML VIAL SQ SCH ×4 (08:43→20:25)
[2016-10-23] MEDS ORDERED: *HR* SitaGLIPtin 100 MG TABLET PO SCH (09:00)
[2016-10-23] MEDS ORDERED: Metoprolol XL (24 HR) Succ 25 MG TAB.ER.24H PO SCH (09:00)
--- NOTE | 2016-10-23 10:37 | ECHO - Doppler Report ---
Echocardiogram Name: Ester Rockwell Date of Study: 10/22/2016 Date: 1935 Ht: 61.0 in Medical Record#: [id number] Age: 81 Wt: 110.0 lb Gender: Female BSA: 1.47 Order #: [id number] Location: [facility] Room #: 2NE21 Reading Physician: Slick Park DO, YOLY, HANH TRUONG Maintenance Department Manager: Maggie Rascon RDCS Ordering Physician: Shady Mcgowan DO Primary Physician: None Indications: ACS Impressions: LVEF 65-70%. Normal LV chamber size, wall thickness and function. Mild left ventricular diastolic dysfunction. Normal right ventricular structure and function. Mild tricuspid regurgitation. No evidence of pulmonary hypertension. Left Ventricular Wall Motion: Rest Echo Findings All wall segments showed normal motion. Findings: Study Quality * Technically adequate exam. ECG Findings * Normal sinus rhythm. Left Ventricle * LVEF 65-70%. * Normal LV chamber size, wall thickness and function. * Mild left ventricular diastolic dysfunction. Right Ventricle * Normal right ventricular structure and function. Left Atrium * Mildly dilated left atrium. Right Atrium * Normal right atrial size. Interatrial Septum * Interatrial septum not well evaluated. Aortic Valve * Trileaflet aortic valve. * Mildly sclerotic aortic valve leaflets. * Trace aortic regurgitation. * No aortic stenosis. Mitral Valve * Mildly thickened mitral valve leaflets. * No mitral regurgitation. * No mitral stenosis. Tricuspid Valve * Normal tricuspid valve structure and function. * Mild tricuspid regurgitation. * No evidence of pulmonary hypertension. Pulmonic Valve * Pulmonic valve is not well visualized. * No pulmonic regurgitation. Aorta * Normally sized aortic root. Pericardium * There is a trivial pericardial effusion present. IVC * Normal IVC dimensions and inspiratory collapse. Pulmonary Artery * Normal visualized portions of the main pulmonary artery. History Hypertension Diabetes Hypercholesteremia Measurements: BP: 160/ 73 2D Normal Values RVIDd: 2.34 cm <2.7 cm IVSd: 1.10 cm 0.6 - 1.0 cm LVIDd: 4.47 cm 3.7 - 5.6 cm LVPWd: 1.10 cm 0.6 - 1.1 cm LVIDs: 2.43 cm 1.5 - 3.6 cm AO: 2.30 cm < 4.0 cm LA: 2.90 cm 2.0 - 4.0cm %FS: 45.60 cm >25 % LA volume: 41 Mitral Valve Peak E:.79 m/sec Peak A:.75 m/sec E/A Ratio:1 Peak E' Lat Manny:7.07 cm/s Peak E' Med Manny:5.98 cm/s E/E' Lat Ratio:11.1 E/E' Med Ratio:13.1 Aortic Valve AI pressure Half-time: 682.00 msec Tricuspid Valve TV Regurg Peak Grad: 26.00mmHg TV Regurg Peak Manny: 2.53m/sec Updated by Slick Park DO, YOLY, ALEXI, HANH on 10/23/2016 10:30:46 AM electronically signed on 10/23/2016 10:31:30 AM with status of Final Wall Motion Mai: 1=Normal, 2=Hypokinesis, 3=Akinesis, 4=Dyskinesis, 5=Aneurysmal, 6=Hyperkinetic, X=Not Visualized (Blank)=Missing
--- NOTE | 2016-10-23 14:29 | Discharge Summary ---
Date of Encounter: 10/23/16 Time of Encounter: 14:25 - Discharge Diagnosis (1) Suspected UTI Priority: Primary Status: Acute Comments: Debility likely secondary to urinary tract infection Culture will be available within the next 2 days As Rocephin is working, we will discharge the patient on 4 more days of Cefdinir (2) Elevated troponin Priority: Secondary Status: Acute Comments: Elevated troponins likely secondary to demand ischemia Echocardiogram shows an ejection fraction of 65-70% with mild diastolic dysfunction and no wall motion abnormalities. 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 Qualified Code(s): E11.9 - Type 2 diabetes mellitus without complications - Discharge Medications Prescriptions: Cefdinir [Omnicef] 300 mg PO BID #8 capsule Home Medications: Calcium Carbonate/Vitamin D3 [Calcium 500 + Vit D Caplet] 1 each PO DAILY [History] Cetirizine HCl [Zyrtec] 10 mg PO DAILY 10/22/16 [History] Levothyroxine Sodium 50 mcg PO DAILY 10/22/16 [History] Metformin HCl [Glucophage] 1,000 mg PO BID 10/22/16 [History] Metoprolol XL (24 HR) Succ [Toprol Xl] 25 mg PO DAILY 10/22/16 [History] Multivit-Min/FA/Calcium/Vit K1 [Hm One Daily Women's 50+] 1 each PO DAILY [History] Pravastatin Sodium [Pravachol] 40 mg PO DAILY 10/22/16 [History] Ramipril [Altace] 10 mg PO BID 10/22/16 [History] SitaGLIPtin [Januvia] 100 mg PO DAILY 10/22/16 [History] Aspirin 81 mg PO DAILY tab.chew 10/23/16 [Rx] Cefdinir [Omnicef] 300 mg PO BID #8 capsule 10/23/16 [Rx] Magnesium Oxide [Mag-Ox] 400 mg PO DAILY #30 tablet 10/23/16 [Rx] Allergies/Adverse Reactions: Allergies ampicillin Allergy (Verified 10/22/16 08:15) Rash Procedures/tests Complete & Pending: Procedures Performed prior 72 hours Category Date Time Status MR angio head wo con [MR] Routine MRI 10/22/16 05:45 Completed MR angio neck wo/w con [MR] Routine MRI 10/22/16 05:45 Completed ECG 12 lead ECG [ECG] Routine Y 10/22/16 07:00 Ordered EV echocardiogram Routine Y 10/22/16 05:32 Completed Date of admission: 10/22/16 05:30 Primary care physician: PCP NO Consults: 10/22/16 11:42 Consult to Physical Therapy [CONS] Routine Comment: Evaluate, develop and implement POC 10/22/16 11:43 Consult to Occupational Therapy [CONS] Routine Comment: Evaluate, develop and implement POC - Patient Status Disposition: Transfer SNF Condition: Good Overall status at discharge: patient is progressing back to baseline - Discharge Instructions Follow Up With: NO,PCP [Primary Care Provider] - Additional Instructions: Follow-up with primary care physician after being discharged from the rehabilitation facility. Continue 4 more days of Cefdinir. - Diet and Activity Activity: increase activity as tolerated Diet: diabetic diet Hospital course: Ms. Rockwell is a 81 year old female with prior medical history of diabetes not insulin-dependent, hypertension, and hyperlipidemia who presented to [facility] after 3 days of worsening generalized weakness, disequilibrium, and mild confusion. The patient stated that starting 3 days prior to her admission she began having some disequilibrium and described it as "stepping backwards" when she stood up or tried to walk. She admitted that she had fallen but did not recall hitting her head or body parts. She described feeling as being off balance, but not of the room spinning. She reported she had a cough , denied shortness of breath, denied chest pain, denied palpitations, denied fever, denied tinnitus, reported exertional dyspnea, reported lightheadedness, and possible nausea Her UA was positive for a UTI. She was started on Rocephin and responded well to the antibiotic treatment WBC was 16.3 and came down to a normal value OF 9.8 Her initial troponin was 0.17 and came down to 0.11 Creatinine has come down to normal 0.84, it was 1.04 before. Echocardiogram did not show any wall motion abnormalities. MRA of the neck did not show any carotid or vertebral artery stenosis/no aneurysm MRI of the brain did not showed volume loss with mild chronic white matter microvascular ischemic changes The patient agreed to go to a rehabilitation facility to continue her plan of care - Time Spent with Patient Total time spent providing and/or coordinating discharge services: Greater than 30 minutes (40 min) - Constitutional Vitals: Temp Pulse Resp BP Pulse Ox 98.5 F 68 16 117/61 98 10/23/16 07:48 10/23/16 07:48 10/23/16 07:48 10/23/16 07:48 10/23/16 07:48 General appearance: Present: A&O X 3, underweight - Head Head exam: Present: atraumatic, normocephalic - Eye Eye exam: Present: PERRL, conjuntiva pink, sclera anicteric Pupils: Present: PERRL - Neck Neck exam general surgery: Present: supple, trachea midline. Absent: lymphadenopathy - Respiratory Respiratory exam: Present: CTAB. Absent: accessory muscle use, rales, rhonchi, wheezes - Cardiovascular Cardiovascular exam: Present: RRR, +S1, +S2. Absent: diastolic murmur, gallop, rubs, systolic murmur - GI/Abdominal GI/Abdominal exam: Present: normal bowel sounds, soft, no peritoneal signs. Absent: distended, tenderness - Extremities Exam Extremities exam: Present: warm, radial pulses palpable and symetrical. Absent : calf tenderness, cyanotic, pedal edema - Neurological Exam Neurological exam: Present: CN II-XII intact, oriented X3, no focal deficits. Absent: pronater drift, facial droop, speech deficit - Skin Skin exam: Present: dry, intact
--- NOTE | 2016-10-23 14:40 | Physician Discharge Referral ---
[facility]Care Referral Info Provider in Charge after Transfer: PCP Institutional Level of Care: Skilled - Diagnosis (1) Suspected UTI Status: Acute (2) Elevated troponin Status: Acute (3) Disequilibrium Status: Acute (4) Fall Status: Acute (5) Diabetes Status: Acute - Transfer Medications Prescriptions: Cefdinir [Omnicef] 300 mg PO BID #8 capsule Home Medications: Calcium Carbonate/Vitamin D3 [Calcium 500 + Vit D Caplet] 1 each PO DAILY [History] Cetirizine HCl [Zyrtec] 10 mg PO DAILY 10/22/16 [History] Levothyroxine Sodium 50 mcg PO DAILY 10/22/16 [History] Metformin HCl [Glucophage] 1,000 mg PO BID 10/22/16 [History] Metoprolol XL (24 HR) Succ [Toprol Xl] 25 mg PO DAILY 10/22/16 [History] Multivit-Min/FA/Calcium/Vit K1 [Hm One Daily Women's 50+] 1 each PO DAILY [History] Pravastatin Sodium [Pravachol] 40 mg PO DAILY 10/22/16 [History] Ramipril [Altace] 10 mg PO BID 10/22/16 [History] SitaGLIPtin [Januvia] 100 mg PO DAILY 10/22/16 [History] Aspirin 81 mg PO DAILY tab.chew 10/23/16 [Rx] Cefdinir [Omnicef] 300 mg PO BID #8 capsule 10/23/16 [Rx] Magnesium Oxide [Mag-Ox] 400 mg PO DAILY #30 tablet 10/23/16 [Rx] Allergies/Adverse Reactions: Allergies ampicillin Allergy (Verified 10/22/16 08:15) Rash - Respiratory Orders Smoking Cessation: Smoking cessation has been advised. For more information, call the [place] Tobacco Quit Line at 7-760-SZRO-NOW. - Advance Directives Code Status: Full Code - Diet Orders No Added Salt (CONCHITA) House Supplement per Dietary: Follow-up with primary care physician after being discharged from the rehabilitation facility. Continue 4 more days of Cefdinir. CERTIFICATION: I certify that the transfer of the above named patient to an Extended Care Facility is necessary for the continuing treatment of the diagnosis listed. The above information is true and accurate reflection of patient's current condition. Confidential - Redisclosure prohibited without a patient's written consent.
[2016-10-23] MEDS ORDERED: Metoprolol XL (24 HR) Succ 50 MG TAB.ER.24H PO SCH (17:55)
[2016-10-23] MEDS ORDERED: *HR* Metoprolol 5 MG/5 ML VIAL IVP ONE (17:56)
[2016-10-23] MEDS: *HR* Metoprolol 5 MG/5 ML VIAL IVP PRN ×5 (18:01→22:20)
[2016-10-23] MEDS: Ondansetron 4 MG/2 ML VIAL IVP PRN (18:12)
[2016-10-23] MEDS ORDERED: 0.9 % Sodium Chloride 1,000 ML ONE (21:59)
[2016-10-23] MEDS ORDERED: 0.9 % Sodium Chloride 1,000 ML IV ONE (22:10)
[2016-10-23 22:27] LABS: Calcium 8.6 mg/dL (8.6-10.8); Magnesium 1.5 mg/dL (1.6-2.6); Potassium 3.9 mEq/L (3.5-4.5)
--- NOTE | 2016-10-23 22:31 | Event Note ---
Date of Encounter: 10/23/16 Time of Encounter: 22:29 Called to bedside for A. Fib/RVR with HR 160's and BP dropping. I ordered NS bolus 1 liter, stop Cardizem, and Lopressor IV x 2 doses. HR stabilized and BP came up. I ordered STAT labs, scheduled PO Lopressor, and cancelled Cardizem drip. Will monitor.
[2016-10-24] MEDS: *HR* Enoxaparin 40 MG/0.4 ML SYRINGE SQ SCH (06:45)
--- NOTE | 2016-10-24 08:42 | Internal Med Progress Note ---
Date of Encounter: 10/24/16 Time of Encounter: 08:40 - Assessment and plan (1) Atrial fibrillation with RVR Current Visit: Yes Status: Acute Assessment and plan: Unclear etiology Converted to sinus rhythm hr in the 200s on 10/23/2016, non responssive initially to 3 doses of IV lopressor 5 mg, was given cardizem 10 mg IV and started on a cardizem drip Cardizem drip had to be stopped as her blood pressure dropped Metoprolol was increased to 25 mg twice a day Discharge cancelled. Will consult cardiology (2) Elevated troponin Current Visit: Yes Status: Acute Assessment and plan: Likely secondary to demand ischemia versus non-STEMI Discontinued full dose of Lovenox and ordered Lovenox only for DVT prophylaxis, consider resuming Lovenox or starting heparin if cardiology agrees Monitor troponins EKG showed small ST depression in lateral leads, repeat EKG Echocardiogram ordered showed ejection fraction of 65-70% with mild diastolic dysfunction and no wall motion abnormalities cardiology consulted (3) Suspected UTI Current Visit: Yes Status: Acute Assessment and plan: Possible sepsis secondary to urinary tract infection WBC 16.3 with tachypnea more than 22 Continue Rocephin day 3 await cultures final report, gram-negative rods growing, continue IV fluids (4) Disequilibrium Current Visit: Yes Status: Acute Assessment and plan: Possibly related to dehydration and UTI (5) Fall Current Visit: Yes Status: Acute Assessment and plan: No evidence of fractures on the MRI of the head Qualifiers: Qualified Code(s): W19.XXXD - Unspecified fall, subsequent encounter (6) Diabetes Current Visit: Yes Status: Acute Assessment and plan: Continue insulin sliding scale Qualifiers: Diabetes mellitus type: type 2 Diabetes mellitus complication status: without complication 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 fib with RVR in the 200s, converted to sinus at the moment. The patient is not having any dizziness, feels slightly stronger. Denies any chest pain or shortness of breath, no abdominal pain, no dysuria. No diarrhea - Constitutional Vitals: Temp Pulse Resp BP Pulse Ox 98.3 F 76 16 110/80 95 10/24/16 07:23 10/24/16 07:23 10/24/16 07:23 10/24/16 07:23 10/24/16 07:23 General appearance: Present: A&O X 3, underweight - Head Head exam: Present: atraumatic, normocephalic - Eye Eye exam: Present: PERRL, conjuntiva pink, sclera anicteric Pupils: Present: PERRL - Neck Neck exam general surgery: Present: supple, trachea midline. Absent: lymphadenopathy - Respiratory Respiratory exam: Present: CTAB. Absent: accessory muscle use, rales, rhonchi, wheezes - Cardiovascular Cardiovascular exam: Present: RRR, +S1, +S2. Absent: diastolic murmur, gallop, rubs, systolic murmur - GI/Abdominal GI/Abdominal exam: Present: normal bowel sounds, soft, no peritoneal signs. Absent: distended, tenderness - Extremities Exam Extremities exam: Present: warm, radial pulses palpable and symetrical. Absent : calf tenderness, cyanotic, pedal edema - Neurological Exam Neurological exam: Present: CN II-XII intact, oriented X3, no focal deficits. Absent: pronater drift, facial droop, speech deficit - Skin Skin exam: Present: dry, intact Internal Medicine: Result - Labs CBC & Chem 7: 10/23/16 04:35 10/23/16 19:33 Labs: BMP 10/23/16 19:33 Sodium 138 Potassium 3.9 Chloride 103 Carbon Dioxide 18 L BUN 30 H Creatinine 1.15 H Glucose 202 H Calcium 8.6 Cardiac Enzymes 10/23/16 10/24/16 Range/Units 19:33 01:57 Troponin I 0.05 H* 0.10 H* (0-0.03) ng/mL - ABG Interpretation ABG results: PT/INR, D-dimer PT 13.7 Seconds (9.4-12.1) H 10/22/16 06:56 - Impressions Impressions Head MRA 10/22/16 05:45 IMPRESSION: No flow-limiting stenosis of the cervical carotid or vertebral arteries. No intracranial flow-limiting stenosis or aneurysm. D/ / 10/22/2016 11:17:52 Alex Anderson MD / macie Interpreting Provider: Alex Anderson MD Neck MRA 10/22/16 05:45 IMPRESSION: No flow-limiting stenosis of the cervical carotid or vertebral arteries. No intracranial flow-limiting stenosis or aneurysm. 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 Continue 4 more days of Cefdinir. Referrals: NO,PCP [Primary Care Provider] - Prescriptions: Cefdinir [Omnicef] 300 mg PO BID #8 capsule
--- NOTE | 2016-10-24 09:28 | Cardiology Consult Note ---
Date of Encounter: 10/24/16 Time of Encounter: 09:26 Assessment and Plan (1) Elevated troponin Current Visit: Yes Status: Acute This is likely secondary to sepsis and AF with RVR. (2) Atrial fibrillation with RVR Current Visit: Yes Status: Acute Developed AF with RVR in settinf of possible sepsis/ UTI. Now in NSR. Would reommned po cardizem, discontinue IV. Discussion w patient/family: The assessment and plan as outlined above was discussed with the patient and/or family members who expressed understanding and agreement. All questions were answered. Thank you for involving us in the care of your patient. Please call with any questions. History of Present Illness Consult date: 10/24/16 Requesting physician: Brady Talbot Consult reason: PAF History of present illness: Ms. Rockwell is a 81 year old female admitted for possible sepsis. Yesterday she developed Af with RVR, was apparently asymptomatic. She converted to NSR after IV cardizem. Past Med Surg Social Fam HX - Past Medical History Medical history: diabetes, hyperlipidemia, hypertension - Social History Smoking Status: Never smoker Alcohol use: none Drug use: none Medications and Allergies Calcium Carbonate/Vitamin D3 [Calcium 500 + Vit D Caplet] 1 each PO DAILY [History] Cetirizine HCl [Zyrtec] 10 mg PO DAILY 10/22/16 [History] Levothyroxine Sodium 50 mcg PO DAILY 10/22/16 [History] Metformin HCl [Glucophage] 1,000 mg PO BID 10/22/16 [History] Metoprolol XL (24 HR) Succ [Toprol Xl] 25 mg PO DAILY 10/22/16 [History] Multivit-Min/FA/Calcium/Vit K1 [Hm One Daily Women's 50+] 1 each PO DAILY [History] Pravastatin Sodium [Pravachol] 40 mg PO DAILY 10/22/16 [History] Ramipril [Altace] 10 mg PO BID 10/22/16 [History] SitaGLIPtin [Januvia] 100 mg PO DAILY 10/22/16 [History] Aspirin 81 mg PO DAILY tab.chew 10/23/16 [Rx] Cefdinir [Omnicef] 300 mg PO BID #8 capsule 10/23/16 [Rx] Magnesium Oxide [Mag-Ox] 400 mg PO DAILY #30 tablet 10/23/16 [Rx] Allergies ampicillin Allergy (Verified 10/22/16 08:15) Rash All Systems Review: A 10-system review of systems was performed and is negative for pertinent findings except as documented above in the HPI. Physical Examination Vital Signs, Last 4 Hours Temp Pulse Resp BP Pulse Ox 10/24/16 07:23 98.3 F 76 16 110/80 95 General: Conversant, No Apparent Distress HEENT: Atraumatic, Normocephaly, Mucus Membranes Moist Neck: No JVD, Normal carotid pulses Cardiac: Reg Rate and Rhythm, Normal S1 and S2, No Murmur Lungs: Other (scatttered ronchi) Abdomen: Soft, Non-Tender Extremities: No Clubbing, No Cyanosis, No Edema, Normal Pulses Results 10/23/16 04:35 10/23/16 19:33 Lab Results 10/23/16 10/23/16 10/24/16 19:33 19:33 01:57 Sodium 138 Potassium 3.9 Chloride 103 Carbon Dioxide 18 L BUN 30 H Creatinine 1.15 H Glucose 202 H Calcium 8.6 Magnesium 1.5 L Troponin I 0.05 H* 0.10 H* 10/24/16 08:46 Sodium Potassium Chloride Carbon Dioxide BUN Creatinine Glucose Calcium Magnesium Troponin I 0.08 H* - EKG Interpretation EKG results cardiology: personally reviewed (currently NSR) Consult Discharge Plan - Plan Instructions: Cefdinir (By mouth), Myocardial Infarction (DC), Urinary Tract Infection in Women (DC), Urinary Tract Infection in Women (GEN), Diabetes Mellitus Type 2 in Adults (DC), Sepsis (DC), Fall Prevention (DC), Urinary Tract Infection in Women, 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 Continue 4 more days of Cefdinir. Referrals: NO,PCP [Primary Care Provider] - Prescriptions: Cefdinir [Omnicef] 300 mg PO BID #8 capsule
[2016-10-24] MEDS: Insulin LISPRO 300 UNITS/3 ML VIAL SQ SCH ×4 (09:39→20:30)
[2016-10-24] MEDS: Aspirin 81 MG TAB.CHEW PO SCH (09:40)
[2016-10-24] MEDS: Magnesium Oxide 400 MG TABLET PO SCH ×2 (09:40→20:25)
[2016-10-24] MEDS: *HR* Metformin 500 MG TABLET PO SCH ×2 (09:41→20:25)
[2016-10-24] MEDS: Lisinopril 20 MG TABLET PO SCH (09:41)
[2016-10-24] MEDS: *HR* SitaGLIPtin 25 MG TABLET PO SCH (09:42)
[2016-10-24] MEDS: Ondansetron 4 MG/2 ML VIAL IVP PRN (11:26)
[2016-10-25] MEDS: *HR* Enoxaparin 40 MG/0.4 ML SYRINGE SQ SCH (06:04)
[2016-10-25] MEDS: Insulin LISPRO 300 UNITS/3 ML VIAL SQ SCH ×4 (07:48→20:40)
[2016-10-25] MEDS: Magnesium Oxide 400 MG TABLET PO SCH ×2 (07:50→20:39)
[2016-10-25] MEDS: Aspirin 81 MG TAB.CHEW PO SCH (07:50)
[2016-10-25] MEDS: *HR* SitaGLIPtin 25 MG TABLET PO SCH (07:50)
[2016-10-25] MEDS: *HR* Metformin 500 MG TABLET PO SCH ×2 (07:50→20:39)
[2016-10-25] MEDS: Lisinopril 20 MG TABLET PO SCH (07:51)
--- NOTE | 2016-10-25 09:55 | Cardiology Progress Note ---
Date of Encounter: 10/25/16 Time of Encounter: 09:53 Assessment and Plan (1) Elevated troponin Current Visit: Yes Status: Acute This is likely secondary to sepsis and AF with RVR. She was entirely asymptomatic with AF. Would be safest to sent hoe with anticoagulation. She wouls like to try a NOAC, depending on cost. (2) Atrial fibrillation with RVR Current Visit: Yes Status: Acute Developed AF with RVR in setting of possible sepsis/ UTI. Now in NSR. Would reommned cheyenne portillo. Discussion w patient/family: The assessment and plan as outlined above was discussed with the patient and/or family members who expressed understanding and agreement. All questions were answered. Thank you for involving us in the care of your patient. Please call with any questions. Subjective Principal diagnosis: PAF Interval history: No recurrent AF. Objective Vital Signs, Last 4 Hours Temp Pulse Resp BP Pulse Ox 10/25/16 07:45 98.3 F 64 13 113/56 94 L General: Conversant, No Apparent Distress HEENT: Atraumatic, Normocephaly, Mucus Membranes Moist Neck: No JVD, Normal carotid pulses Cardiac: Reg Rate and Rhythm, Normal S1 and S2, No Murmur Lungs: Normal Breath Sounds, No Wheeze, Rales, Rhonchi Neuro: Alert and responsive, No focal deficits noted Extremities: No Clubbing, No Cyanosis, No Edema, Normal Pulses Results 10/23/16 04:35 10/23/16 19:33 Consult Discharge Plan - Plan Instructions: Cefdinir (By mouth), Myocardial Infarction (DC), Urinary Tract Infection in Women (DC), Urinary Tract Infection in Women (GEN), Diabetes Mellitus Type 2 in Adults (DC), Sepsis (DC), Fall Prevention (DC), Urinary Tract Infection in Women, Client Manager (GEN) Additional Instructions: Follow-up with primary care physician after being discharged from the rehabilitation facility. Continue 4 more days of Cefdinir. Referrals: NO,PCP [Primary Care Provider] -
--- NOTE | 2016-10-25 12:42 | Electrocardiograph Report ---
[address] [address] Test Date: 2016-10-23 Pat Name: Ester Rockwell Department: 111 Room: 2NE21 Gender: F Sign Builder: : 1935 Requested By: Brady Talbot Order Number: [id number] Reading MD: Libby Santamaria Measurements Intervals [place] Rate: 182 P: PA: 0 QRS: -14 QRSD: 86 T: 191 QT: 210 QTc: 306 Interpretive Statements ATRIAL FIBRILLATION WITH RAPID VENTRICULAR RESPONSE POSSIBLE RIGHT VENTRICULAR CONDUCTION DELAY POSSIBLE ANTEROLATERAL ISCHEMIA Electronically Signed On 10-25-2016 12:40:22 EDT by Libby Santamaria
--- NOTE | 2016-10-25 12:43 | Electrocardiograph Report ---
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
--- NOTE | 2016-10-25 12:55 | Electrocardiograph Report ---
[place] [address] Test Date: 2016-10-24 Pat Name: Ester Rockwell Department: 111 Room: 2N1 Gender: F Pearl Technician: : 1935 Requested By: Brady Talbot Order Number: [id number] Reading MD: Libby Santamaria Measurements Intervals [place] Rate: 69 P: 78 SD: 121 QRS: 11 QRSD: 82 T: 28 QT: 395 QTc: 415 Interpretive Statements SINUS RHYTHM POSSIBLE RIGHT VENTRICULAR CONDUCTION DELAY NONSPECIFIC T-WAVE ABNORMALITY Electronically Signed On 10-25-2016 12:53:37 EDT by Libby Santamaria
--- NOTE | 2016-10-25 13:09 | Internal Med Progress Note ---
Date of Encounter: 10/25/16 Time of Encounter: 13:03 - Assessment and plan (1) Atrial fibrillation with RVR Current Visit: Yes Status: Acute Assessment and plan: Unclear etiology Converted to sinus rhythm hr in the 200s on 10/23/2016, non responssive initially to 3 doses of IV lopressor 5 mg, was given cardizem 10 mg IV and started on a cardizem drip (discontinued) Cardizem drip had to be stopped as her blood pressure dropped Metoprolol was increased to 25 mg twice a day cadiology recomended to start po cardizem , had episodes of hypotension (2) Elevated troponin Current Visit: Yes Status: Acute Assessment and plan: Likely secondary to demand ischemia versus non-STEMI Discontinued full dose of Lovenox and ordered Lovenox only for DVT prophylaxis, consider resuming Lovenox or starting heparin if cardiology agrees Monitor troponins EKG showed small ST depression in lateral leads, repeat EKG Echocardiogram ordered showed ejection fraction of 65-70% with mild diastolic dysfunction and no wall motion abnormalities cardiology consulted (3) Suspected UTI Current Visit: Yes Status: Acute Assessment and plan: Possible sepsis secondary to urinary tract infection WBC 16.3 with tachypnea more than 22 Continue Rocephin day 4 E coli resistant to levaquin, gent , ampicill/sulbact (4) Disequilibrium Current Visit: Yes Status: Acute Assessment and plan: Possibly related to dehydration and UTI (5) Fall Current Visit: Yes Status: Acute Assessment and plan: No evidence of fractures on the MRI of the head Qualifiers: Qualified Code(s): W19.XXXD - Unspecified fall, subsequent encounter (6) Diabetes Current Visit: Yes Status: Acute Assessment and plan: Continue insulin sliding scale Qualifiers: Diabetes mellitus type: type 2 Diabetes mellitus complication status: without complication Diabetes mellitus technician terminal and repeater insulin use: without mcfp use Qualified Code(s): E11.9 - Type 2 diabetes mellitus without complications - Time Spent With Patient Greater than 35 minutes - Subjective Interval history: The patient's developed A. fib with RVR in the 200s on 10/23/16, converted to sinus at the moment. The patient is not having any dizziness, feels slightly stronger. Denies any chest pain or shortness of breath, no abdominal pain, no dysuria. No diarrhea - Constitutional Vitals: Temp Pulse Resp BP Pulse Ox 98.3 F 56 13 98/71 94 L 10/25/16 11:14 10/25/16 11:14 10/25/16 11:14 10/25/16 11:14 10/25/16 11:14 General appearance: Present: A&O X 3, underweight - Head Head exam: Present: atraumatic, normocephalic - Eye Eye exam: Present: PERRL, conjuntiva pink, sclera anicteric Pupils: Present: PERRL - Neck Neck exam general surgery: Present: supple, trachea midline. Absent: lymphadenopathy - Respiratory Respiratory exam: Present: decreased breath sounds, CTAB. Absent: accessory muscle use, rales, rhonchi, wheezes - Cardiovascular Cardiovascular exam: Present: irregular rhythm, RRR, +S1, +S2. Absent: diastolic murmur, gallop, rubs, systolic murmur - GI/Abdominal GI/Abdominal exam: Present: normal bowel sounds, soft, no peritoneal signs. Absent: distended, tenderness - Extremities Exam Extremities exam: Present: warm, radial pulses palpable and symetrical. Absent : calf tenderness, cyanotic, pedal edema - Neurological Exam Neurological exam: Present: CN II-XII intact, oriented X3, no focal deficits. 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 Continue 4 more days of Cefdinir. Referrals: NO,PCP [Primary Care Provider] -
[2016-10-25] MEDS: Ondansetron 4 MG/2 ML VIAL IVP PRN (17:03)
[2016-10-26] MEDS ORDERED: *HR* Enoxaparin 30 MG/0.3 ML SYRINGE SQ SCH (06:00)
[2016-10-26] MEDS: Magnesium Oxide 400 MG TABLET PO SCH ×2 (08:23→21:24)
[2016-10-26] MEDS: Lisinopril 20 MG TABLET PO SCH (08:23)
[2016-10-26] MEDS: *HR* Metformin 500 MG TABLET PO SCH ×2 (08:23→21:24)
[2016-10-26] MEDS: Aspirin 81 MG TAB.CHEW PO SCH (08:24)
[2016-10-26] MEDS: *HR* SitaGLIPtin 25 MG TABLET PO SCH (08:24)
[2016-10-26] MEDS: Insulin LISPRO 300 UNITS/3 ML VIAL SQ SCH ×4 (08:25→21:25)
--- NOTE | 2016-10-26 08:48 | Cardiology Progress Note ---
Date of Encounter: 10/26/16 Time of Encounter: 08:45 Assessment and Plan (1) Suspected UTI Current Visit: Yes Status: Acute Per Cardiology: On antibiotics. Urine Cx showed + e. coli. Management per primary service. (2) Atrial fibrillation with RVR Current Visit: Yes Status: Acute Per Cardiology: Developed PAF with RVR in setting of UTI. Remains SR with avg HR 61 past 12 hrs. On Lopressor 25mg PO BID and Cardizem 30mg PO every 6 hrs. SBP 90's - 110' s. On Lisinopril 40mg PO daily and now with some mild GWEN. Will decrease ACEI dose to allow for room with BP for CCB and BB. Will convert to long acting CCB today. Regarding long-term AC, has hx of falls, but previous discussion with family by Dr. Sanya Fox was to consider addition of DOAC. Discussed and reviewed with Dr. Lara, will perform pastor check for Eliquis 2.5mg PO BID (age over 80, Weight less than 60kg). (3) Elevated troponin Current Visit: Yes Status: Acute Per Cardiology: Peak troponin 0.17. Echo showed EF preserved at 65-70%, mild tricuspid regurgitation, mild diastolic dysfunction, no segmental wall motion abnormalities. Suspect demand ischemia that is likely secondary to sepsis and AF with RVR. No cardiac rehabilitation consult warranted. Discussion w patient/family: The assessment and plan as outlined above was discussed with the patient and/or family members who expressed understanding and agreement. All questions were answered. Thank you for involving us in the care of your patient. Please call with any questions. Subjective Principal diagnosis: PAF Interval history: Patient seen today with at bedside. Denies any CP, SOB, Palps. Reports uses walker at home. Has had 2 falls in past month-- "unsteadiness". Reports has had 4 falls in past year. Denies any active bleeding or blood loss. Objective Vital Signs, Last 4 Hours Temp Pulse Resp BP Pulse Ox 10/26/16 07:16 97.8 F 61 18 92/56 10/26/16 04:54 92.0 F L 62 14 111/58 93 L General: Conversant, No Apparent Distress HEENT: Atraumatic, Normocephaly, Mucus Membranes Moist Neck: No JVD Cardiac: Reg Rate and Rhythm, Normal S1 and S2, No Murmur Lungs: Normal Breath Sounds, No Wheeze, Rales, Rhonchi Neuro: Alert and responsive, No focal deficits noted Skin: No rashes noted on visualized skin Musculoskeletal: No Chest Wall Tenderness Extremities: No Edema, Normal Pulses Results 10/23/16 04:35 10/23/16 19:33 Laboratory Tests 10/21/16 10/21/16 10/22/16 21:59 21:59 06:33 WBC 16.3 H Hgb 11.8 Hct 36.3 Plt Count 151 INR Creatinine Est GFR (Non-Af Amer) Troponin I 0.17 H* LDL Cholesterol, Calc Urine Blood Large H Urine Nitrite Positive A Ur Leukocyte Esterase Large H Urine Bacteria Many H 10/22/16 10/22/16 10/22/16 06:56 06:56 06:56 WBC Hgb Hct Plt Count INR 1.3 Creatinine Est GFR (Non-Af Amer) Troponin I 0.08 H* LDL Cholesterol, Calc 79 Urine Blood Urine Nitrite Ur Leukocyte Esterase Urine Bacteria 10/22/16 10/22/16 10/23/16 13:33 19:28 04:35 WBC 9.8 Hgb 11.0 L Hct 35.2 L Plt Count 133 L INR Creatinine Est GFR (Non-Af Amer) Troponin I 0.12 H* 0.11 H* LDL Cholesterol, Calc Urine Blood Urine Nitrite Ur Leukocyte Esterase Urine Bacteria 10/23/16 10/23/16 10/24/16 19:33 19:33 01:57 WBC Hgb Hct Plt Count INR Creatinine 1.15 H Est GFR (Non-Af Amer) 45 L Troponin I 0.05 H* 0.10 H* LDL Cholesterol, Calc Urine Blood Urine Nitrite Ur Leukocyte Esterase Urine Bacteria 10/24/16 08:46 WBC Hgb Hct Plt Count INR Creatinine Est GFR (Non-Af Amer) Troponin I 0.08 H* LDL Cholesterol, Calc Urine Blood Urine Nitrite Ur Leukocyte Esterase Urine Bacteria ITS Impressions Chest X-Ray 10/21/16 21:50 IMPRESSION: Borderline cardiomegaly and probable COPD, no superimposed acute pulmonary process. D/ / Landen Simons MD / Landen Simons MD Interpreting Provider: Landen Simons MD Brain MRI 10/22/16 00:10 IMPRESSION: Volume loss with mild chronic white matter microvascular ischemic change. D/ / Garry Escobar MD / Garry Escobar MD Interpreting Provider: Garry Escobar MD Head MRA 10/22/16 05:45 IMPRESSION: No flow-limiting stenosis of the cervical carotid or vertebral arteries. No intracranial flow-limiting stenosis or aneurysm. D/ / 10/22/2016 11:17:52 Alex Anderson MD / macie Interpreting Provider: Alex Anderson MD Neck MRA 10/22/16 05:45 IMPRESSION: No flow-limiting stenosis of the cervical carotid or vertebral arteries. No intracranial flow-limiting stenosis or aneurysm. D/ / 10/22/2016 11:17:52 Alex Anderson MD / macie Interpreting Provider: Alex Anderson MD Intake & Output 10/23/16 10/24/16 10/25/16 10/26/16 23:59 23:59 23:59 23:59 Intake Total 595 / 595 580 / 580 220 / 220 0 / 0 Output Total 100 / 100 0 / 0 100 / 100 Balance 595 / 595 480 / 480 220 / 220 -100 / -100 Weight 51.7 kg 51.4 kg 51.5 kg Active Medications Acetaminophen (Tylenol) 650 mg PO Q6HR PRN PRN Reason: Pain Stop: 04/23/17 05:32 Last Admin: 10/22/16 20:31 Dose: 650 mg Aspirin (Aspirin) 81 mg PO DAILY [facility]AL Stop: 04/23/17 09:01 Last Admin: 10/26/16 08:24 Dose: 81 mg Dextrose/Water (Dextrose 50% (Syg)) 25 ml IVP AD PRN PRN Reason: Hypoglycemia Stop: 04/23/17 05:32 Diltiazem HCl (Cardizem) 30 mg PO Q6HR [facility]AL Stop: 04/25/17 12:01 Last Admin: 10/26/16 06:34 Dose: 30 mg Docusate Sodium (Colace) 100 mg PO BID PRN PRN Reason: Constipation Stop: 04/23/17 05:32 Last Admin: 10/24/16 09:40 Dose: 100 mg Enoxaparin Sodium (Lovenox) 30 mg SQ 0600 [facility]AL PRN Reason: Protocol Stop: 04/24/17 06:01 Last Admin: 10/26/16 06:34 Dose: 30 mg Glucagon (Glucagen) 1 mg IM ONCE PRN PRN Reason: Hypoglycemia Stop: 04/23/17 05:32 Glucose (Gluctose) 15 gm PO ONCE PRN PRN Reason: Hypoglycemia Stop: 04/23/17 05:32 Glucose (Gluctose) 30 gm PO ONCE PRN PRN Reason: Hypoglycemia Stop: 04/23/17 05:32 Hydralazine HCl (Hydralazine) 10 mg IVP Q6HR PRN PRN Reason: Hypertension Stop: 04/23/17 13:51 Ceftriaxone Sodium 1,000 mg/ (Dextrose) 100 mls @ 0 mls/hr IVPB Q24H [facility] Stop: 04/23/17 06:01 Last Admin: 10/26/16 06:52 Dose: 100 mls/hr Dextrose (Dextrose 5%) 1,000 mls @ 0 mls/hr IV CONT PRN PRN Reason: HYPOGLYCEMIA Stop: 04/23/17 05:32 Insulin Human Lispro (Humalog) 0 units SQ HS [facility] PRN Reason: Protocol Stop: 04/23/17 21:01 Last Admin: 10/25/16 20:40 Dose: Not Given Insulin Human Lispro (Humalog) 0 units SQ TIDAC [facility] PRN Reason: Protocol Stop: 04/23/17 07:31 Last Admin: 10/26/16 08:25 Dose: 2 units Levothyroxine Sodium (Synthroid) 50 mcg PO DAILY@0630 [facility] Stop: 04/24/17 06:31 Last Admin: 10/26/16 06:34 Dose: 50 mcg Lisinopril (Zestril) 40 mg PO DAILY [facility] Stop: 04/23/17 21:01 Last Admin: 10/26/16 08:23 Dose: 40 mg Magnesium Oxide (Mag-Ox) 400 mg PO BID [facility] PRN Reason: Protocol Stop: 04/23/17 21:01 Last Admin: 10/26/16 08:23 Dose: 400 mg Meclizine HCl (Antivert) 12.5 mg PO TID [facility] Stop: 04/23/17 15:01 Last Admin: 10/26/16 08:24 Dose: 12.5 mg Metformin HCl (Glucophage) 1,000 mg PO BID [facility] Stop: 04/23/17 21:01 Last Admin: 10/26/16 08:23 Dose: 1,000 mg Metoprolol Tartrate (Lopressor) 25 mg PO BID [facility] Stop: 04/24/17 22:31 Last Admin: 10/26/16 08:23 Dose: 25 mg Morphine Sulfate (Morphine Sulfate) 2 mg IVP Q4HR PRN PRN Reason: Chest Pain Unrelieved by PO Stop: 04/23/17 05:32 Naloxone HCl (Narcan) 0.4 mg IVP Q2MIN PRN PRN Reason: Opioid Reversal Stop: 04/23/17 05:32 Nitroglycerin (Nitroglycerin) 0.4 mg SL Q5MIN PRN PRN Reason: Chest Pain Stop: 04/23/17 05:32 Ondansetron HCl (Zofran) 4 mg IVP Q8HR PRN PRN Reason: Nausea And Vomiting Stop: 04/23/17 05:32 Last Admin: 10/25/16 17:03 Dose: 4 mg Simvastatin (Zocor) 20 mg PO HS [facility] Stop: 04/24/17 21:01 Last Admin: 10/25/16 20:40 Dose: 20 mg Sitagliptin Phosphate (Januvia) 25 mg PO DAILY [facility] Stop: 04/24/17 09:01 Last Admin: 10/26/16 08:24 Dose: 25 mg - Imaging and Cardiology Chest Xray: report reviewed Echo: report reviewed - EKG Interpretation EKG results cardiology: other (Tele shows avg HR 61, SR) Consult Discharge Plan - Plan Instructions: Cefdinir (By mouth), Myocardial Infarction (DC), Urinary Tract Infection in Women (DC), Urinary Tract Infection in Women (GEN), Diabetes Mellitus Type 2 in Adults (DC), Sepsis (DC), Fall Prevention (DC), Urinary Tract Infection in Women, 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 Continue 4 more days of Cefdinir. Referrals: NO,PCP [Primary Care Provider] -
[2016-10-26] MEDS ORDERED: Lisinopril 20 MG TABLET PO SCH (08:53)
[2016-10-26] MEDS ORDERED: Diltiazem CD (24hr) 120 MG CAPSULE PO SCH (10:15)
[2016-10-26 11:54] LABS: Basophils % 0.4 %; Eosinophils # 0.2 K/mcL (0.0-0.6); Eosinophils % 2.9 %; Hematocrit 37.3 % (35.3-44.9); Hemoglobin 11.9 g/dL (11.5-15.4); Immature Granulocytes % 0.7 % (0-4); Lymphocytes # 1.2 K/mcL (0.6-4.6); Mean Corpuscular HGB Conc 31.9 g/dL (31.6-35.5); Mean Corpuscular Hemoglobin 33.4 pg (28.0-33.3); Mean Corpuscular Volume 104.8 fL (83.0-100.0); Monocytes # 0.5 K/mcL (0.0-1.3); Monocytes % 6.4 %; Neutrophils # 6.2 K/mcL (1.6-8.9); Platelet Count 185 K/mcL (140-400); Red Blood Count 3.56 M/mcL (3.82-4.97); Red Cell Distribution Width 13.5 % (11.5-14.5); Segmented Neutrophils % 75.6 %
[2016-10-26 12:04] LABS: BUN/Creatinine Ratio 30 (6-26); Blood Urea Nitrogen 22 mg/dL (7-20); Calcium 8.2 mg/dL (8.6-10.8); Carbon Dioxide 25 mEq/L (19-29); Chloride 107 mEq/L (98-109); Glucose 92 mg/dL (70-99); Osmolality,Calculated 289 (280-300); Potassium 4.5 mEq/L (3.5-4.5); Sodium 138 mEq/L (136-145); eGFR For African Americans > 60 (> 60); eGFR For Non-African Americans > 60 (> 60)
--- NOTE | 2016-10-26 13:41 | Internal Med Progress Note ---
Date of Encounter: 10/26/16 Time of Encounter: 13:39 - Assessment and plan (1) Atrial fibrillation with RVR Current Visit: Yes Status: Acute Assessment and plan: Unclear etiology Converted to sinus rhythm hr in the 200s on 10/23/2016, non responssive initially to 3 doses of IV lopressor 5 mg, was given cardizem 10 mg IV and started on a cardizem drip ( discontinued) Cardizem drip had to be stopped as her blood pressure dropped Metoprolol was increased to 25 mg twice a day cadiology recomended to start po cardizem , had episodes of hypotension, (2) Elevated troponin Current Visit: Yes Status: Acute Assessment and plan: Likely secondary to demand ischemia versus non-STEMI Discontinued full dose of Lovenox and ordered Lovenox only for DVT prophylaxis, consider resuming Lovenox or starting heparin if cardiology agrees Monitor troponins EKG showed small ST depression in lateral leads, repeat EKG Echocardiogram ordered showed ejection fraction of 65-70% with mild diastolic dysfunction and no wall motion abnormalities cardiology consulted (3) Suspected UTI Current Visit: Yes Status: Acute Assessment and plan: Possible sepsis secondary to urinary tract infection WBC 16.3 with tachypnea more than 22 Stop Rocephin day 5 E coli resistant to levaquin, gent , ampicill/sulbact (4) Disequilibrium Current Visit: Yes Status: Acute Assessment and plan: Possibly related to dehydration and UTI (5) Fall Current Visit: Yes Status: Acute Assessment and plan: No evidence of fractures on the MRI of the head Qualifiers: Qualified Code(s): W19.XXXD - Unspecified fall, subsequent encounter (6) Diabetes Current Visit: Yes Status: Acute Assessment and plan: Continue insulin sliding scale Qualifiers: Diabetes mellitus type: type 2 Diabetes mellitus complication status: without complication Diabetes mellitus terminal system operator insulin use: without terminal system operator use Qualified Code(s): E11.9 - Type 2 diabetes mellitus without complications (7) Diarrhea Current Visit: Yes Status: Acute Assessment and plan: had 2 loose BMs, was n rocephin stop rocephin and test for c diff Qualifiers: Diarrhea type: presumed infectious Qualified Code(s): A09 - Infectious gastroenteritis and colitis, unspecified - Subjective Interval history: The patient's developed A. fib with RVR in the 200s on 10/23/16, converted to sinus at the moment. The patient is not having any dizziness, feels slightly stronger. Denies any chest pain or shortness of breath, no abdominal pain, no dysuria. Had diarrhea - Constitutional Vitals: Temp Pulse Resp BP Pulse Ox 96.9 F L 57 18 100/56 94 L 10/26/16 11:50 10/26/16 11:50 10/26/16 11:50 10/26/16 11:50 10/26/16 11:50 General appearance: Present: A&O X 3, underweight - Head Head exam: Present: atraumatic, normocephalic - Eye Eye exam: Present: PERRL, conjuntiva pink, sclera anicteric Pupils: Present: PERRL - Neck Neck exam general surgery: Present: supple, trachea midline. Absent: lymphadenopathy - Respiratory Respiratory exam: Present: CTAB. Absent: accessory muscle use, rales, rhonchi, wheezes - Cardiovascular Cardiovascular exam: Present: RRR, +S1, +S2. Absent: diastolic murmur, gallop, rubs, systolic murmur - GI/Abdominal GI/Abdominal exam: Present: normal bowel sounds, soft, no peritoneal signs. Absent: distended, tenderness - Extremities Exam Extremities exam: Present: warm, radial pulses palpable and symetrical. Absent : calf tenderness, cyanotic, pedal edema - Neurological Exam Neurological exam: Present: CN II-XII intact, oriented X3, no focal deficits. Absent: pronater drift, facial droop, speech deficit - Skin Skin exam: Present: dry, intact Internal Medicine: Result - Labs CBC & Chem 7: 10/26/16 11:34 10/26/16 11:34 Labs: Short CBC 10/26/16 Range/Units 11:34 WBC 8.2 (4.3-11.1) K/mcL Hgb 11.9 (11.5-15.4) g/dL Hct 37.3 (35.3-44.9) % Plt Count 185 (140-400) K/mcL Neutrophils # 6.2 (1.6-8.9) K/mcL BMP 10/26/16 11:34 Sodium 138 Potassium 4.5 Chloride 107 Carbon Dioxide 25 BUN 22 H Creatinine 0.74 Glucose 92 Calcium 8.2 L - ABG Interpretation ABG results: PT/INR, D-dimer PT 13.7 Seconds (9.4-12.1) H 10/22/16 06:56 Consult Discharge Plan - Plan Instructions: Cefdinir (By mouth), Myocardial Infarction (DC), Urinary Tract Infection in Women (DC), Urinary Tract Infection in Women (GEN), Diabetes Mellitus Type 2 in Adults (DC), Sepsis (DC), Fall Prevention (DC), Urinary Tract Infection in Women, 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 Continue 4 more days of Cefdinir. Referrals: NO,PCP [Primary Care Provider] -
--- NOTE | 2016-10-26 13:48 | Event Note ---
Date of Encounter: 10/26/16 Time of Encounter: 13:00 - Cardiology Event Note Patient seen and reexamined with at bedside. Current systolic pressure in the 100s and remains sinus rhythm in the 50s to 60s. Will discontinue MANNY inhibitor entirely for now--consider adding back if blood pressure will tolerate. Will avoid calcium channel cliff for now. Continue with beta cliff. Regarding long-term anticoagulation, place check for Eliquis to be $45 per month-- patient and will agreeable to proceed. We'll give first dose now and discontinue Lovenox. Again discharged to rehabilitation. Cardiology will sign off, re-consult as needed, follow-up scheduled.
[2016-10-26] MEDS: APIXABAN 5 MG TABLET PO SCH ×2 (16:29→21:25)
[2016-10-26] MEDS: Ondansetron 4 MG/2 ML VIAL IVP PRN (16:56)
[2016-10-27 05:57] LABS: Hematocrit 36.3 % (35.3-44.9); Hemoglobin 11.1 g/dL (11.5-15.4); Mean Corpuscular HGB Conc 30.6 g/dL (31.6-35.5); Mean Corpuscular Hemoglobin 31.7 pg (28.0-33.3); Mean Corpuscular Volume 103.7 fL (83.0-100.0); Platelet Count 182 K/mcL (140-400); Red Cell Distribution Width 13.3 % (11.5-14.5)
[2016-10-27 06:17] LABS: BUN/Creatinine Ratio 23 (6-26); Blood Urea Nitrogen 17 mg/dL (7-20); Calcium 7.8 mg/dL (8.6-10.8); Carbon Dioxide 24 mEq/L (19-29); Chloride 108 mEq/L (98-109); Glucose 122 mg/dL (70-99); Osmolality,Calculated 291 (280-300); Potassium 4.3 mEq/L (3.5-4.5); Sodium 139 mEq/L (136-145); eGFR For African Americans > 60 (> 60); eGFR For Non-African Americans > 60 (> 60)
[2016-10-27] MEDS: APIXABAN 5 MG TABLET PO SCH (08:47)
[2016-10-27] MEDS: Aspirin 81 MG TAB.CHEW PO SCH (08:47)
[2016-10-27] MEDS: *HR* SitaGLIPtin 25 MG TABLET PO SCH (08:47)
[2016-10-27] MEDS: Magnesium Oxide 400 MG TABLET PO SCH (08:47)
[2016-10-27] MEDS: *HR* Metformin 500 MG TABLET PO SCH (08:47)
[2016-10-27] MEDS: Ondansetron 4 MG/2 ML VIAL IVP PRN (08:48)
[2016-10-27] MEDS: Insulin LISPRO 300 UNITS/3 ML VIAL SQ SCH ×2 (08:55→11:47)
[2016-10-27 15:50] VITALS: BP 112/66
--- NOTE | 2016-10-27 16:20 | Discharge Summary ---
Date of Encounter: 10/27/16 Time of Encounter: 16:15 - Discharge Diagnosis (1) Suspected UTI Priority: Secondary Status: Acute (2) Sepsis Priority: Secondary Status: Acute Qualifiers: Sepsis type: sepsis due to unspecified organism Qualified Code(s): A41.9 - Sepsis, unspecified organism (3) NSTEMI (non-ST elevation myocardial infarction) Priority: Secondary Status: Acute (4) Fall Priority: Secondary Status: Acute Qualifiers: Encounter type: subsequent encounter Qualified Code(s): W19.XXXD - Unspecified fall, subsequent encounter (5) Diabetes Priority: Secondary Status: Acute Qualifiers: Diabetes mellitus type: type 2 Diabetes mellitus complication status: without complication Diabetes mellitus intermediate manager insulin use: without intermediate manager use Qualified Code(s): E11.9 - Type 2 diabetes mellitus without complications (6) Atrial fibrillation with RVR Priority: Primary Status: Acute - Discharge Medications Home Medications: Calcium Carbonate/Vitamin D3 [Calcium 500 + Vit D Caplet] 1 each PO DAILY [History] Cetirizine HCl [Zyrtec] 10 mg PO DAILY 10/22/16 [History] Levothyroxine Sodium 50 mcg PO DAILY 10/22/16 [History] Metformin HCl [Glucophage] 1,000 mg PO BID 10/22/16 [History] Metoprolol XL (24 HR) Succ [Toprol Xl] 25 mg PO DAILY 10/22/16 [History] Multivit-Min/FA/Calcium/Vit K1 [Hm One Daily Women's 50+] 1 each PO DAILY [History] Pravastatin Sodium [Pravachol] 40 mg PO DAILY 10/22/16 [History] SitaGLIPtin [Januvia] 100 mg PO DAILY 10/22/16 [History] Aspirin 81 mg PO DAILY tab.chew 10/23/16 [Rx] Magnesium Oxide [Mag-Ox] 400 mg PO DAILY #30 tablet 10/23/16 [Rx] Apixaban [Eliquis] 2.5 mg PO BID tablet 10/27/16 [Rx] Metoprolol [Lopressor] 25 mg PO BID tablet 10/27/16 [Rx] Allergies/Adverse Reactions: Allergies ampicillin Allergy (Verified 10/22/16 08:15) Rash Date of admission: 10/24/16 08:28 Primary care physician: PCP NO Consults: 10/24/16 08:30 Consult to Cardiology [CONS] Routine Comment: Consulting Provider: Cardiology Sarah Reason for Consult: a fib rvr, elevated trops Call Completed: Yes - Patient Status Disposition: Transfer SNF Condition: Good Functional capacity at discharge: uses cane/walker Overall status at discharge: patient is progressing back to baseline - Discharge Instructions Instructions: Myocardial Infarction (DC), Urinary Tract Infection in Women (DC) , Urinary Tract Infection in Women (GEN), Diabetes Mellitus Type 2 in Adults (DC ), Sepsis (DC), Fall Prevention (DC), Urinary Tract Infection in Women, 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 Continue 4 more days of Cefdinir. - Diet and Activity Activity: ambulate only with your walker, as per physical therapy Diet: diabetic diet, low salt diet Interval History: Patient's heart rate is controlled. Her symptoms have resolved. She completed a course of IV antibiotics for UTI. She has been evaluated by PT and OT and will be discharged to correction today. Hospital course: Ms. Rockwell is a 81 year old female with prior medical history of diabetes not insulin-dependent, hypertension, and hyperlipidemia who presented to [place] after 3 days of worsening generalized weakness, disequilibrium, and mild confusion. The patient stated that starting 3 days prior to her admission she began having some disequilibrium and described it as "stepping backwards" when she stood up or tried to walk. She admitted that she had fallen but did not recall hitting her head or body parts. She described feeling as being off balance, but not of the room spinning. She reported she had a cough , denied shortness of breath, denied chest pain, denied palpitations, denied fever, denied tinnitus, reported exertional dyspnea, reported lightheadedness, and possible nausea Her UA was positive for a UTI. She was started on Rocephin and responded well to the antibiotic treatment WBC was 16.3 and came down to a normal value OF 9.8 Her initial troponin was 0.17 and came down to 0.11 Creatinine has come down to normal 0.84, it was 1.04 before. Echocardiogram did not show any wall motion abnormalities. MRA of the neck did not show any carotid or vertebral artery stenosis/no aneurysm MRI of the brain did not showed volume loss with mild chronic white matter microvascular ischemic changes The patient agreed to go to a rehabilitation facility to continue her plan of care, however her heart rate went up to 200 and she was found to be in A. fib with RVR. She was given IV Lopressor and IV Cardizem which initially did not control the heart rate. Within 24 hours she converted back to normal sinus rhythm. We will switch to oral Cardizem and started on anticoagulation with Eliquis. She completed IV antibiotics for UTI and will be discharged to [facility]. - Time Spent with Patient Total time spent providing and/or coordinating discharge services: Greater than 30 minutes (45 minutes coordinating this discharge) - Constitutional Vitals: Temp Pulse Resp BP Pulse Ox 97.7 F 55 16 112/66 96 10/27/16 15:47 10/27/16 15:47 10/27/16 15:47 10/27/16 15:47 10/27/16 15:47 General appearance: Present: A&O X 3, underweight - Respiratory Respiratory exam: Present: CTAB. Absent: accessory muscle use, rales, rhonchi, wheezes - Cardiovascular Cardiovascular exam: Present: RRR, +S1, +S2. Absent: diastolic murmur, gallop, rubs, systolic murmur
--- NOTE | 2016-10-27 16:24 | Physician Discharge Referral ---
ExtendedCare Referral Info Transfer To: SNF Provider in Charge after Transfer: PCP Institutional Level of Care: Skilled - Diagnosis (1) Suspected UTI Status: Acute (2) Sepsis Status: Acute (3) NSTEMI (non-ST elevation myocardial infarction) Status: Acute (4) Fall Status: Acute (5) Diabetes Status: Acute (6) Atrial fibrillation with RVR Status: Acute - Transfer Medications Home Medications: Calcium Carbonate/Vitamin D3 [Calcium 500 + Vit D Caplet] 1 each PO DAILY [History] Cetirizine HCl [Zyrtec] 10 mg PO DAILY 10/22/16 [History] Levothyroxine Sodium 50 mcg PO DAILY 10/22/16 [History] Metformin HCl [Glucophage] 1,000 mg PO BID 10/22/16 [History] Metoprolol XL (24 HR) Succ [Toprol Xl] 25 mg PO DAILY 10/22/16 [History] Multivit-Min/FA/Calcium/Vit K1 [Hm One Daily Women's 50+] 1 each PO DAILY [History] Pravastatin Sodium [Pravachol] 40 mg PO DAILY 10/22/16 [History] SitaGLIPtin [Januvia] 100 mg PO DAILY 10/22/16 [History] Aspirin 81 mg PO DAILY tab.chew 10/23/16 [Rx] Cefdinir [Omnicef] 300 mg PO BID #8 capsule 10/23/16 [Rx] Magnesium Oxide [Mag-Ox] 400 mg PO DAILY #30 tablet 10/23/16 [Rx] Apixaban [Eliquis] 2.5 mg PO BID tablet 10/27/16 [Rx] Metoprolol [Lopressor] 25 mg PO BID tablet 10/27/16 [Rx] Allergies/Adverse Reactions: Allergies ampicillin Allergy (Verified 10/22/16 08:15) Rash - Respiratory Orders Smoking Cessation: Smoking cessation has been advised. For more information, call the [place] Tobacco Quit Line at 5-796-KXSK-NOW. - Advance Directives Living Will: Yes Power of Asset Recovery Specialist: Yes Code Status: Full Code - Mobility Orders Ambulate - Rehabiliation Orders Rehab Potential: Good Rehab Orders: Evaluation for Physical Therapy, Evaluation for Occupational Therapy - Diet Orders No Added Salt (CONCHITA), No Concentrated Sweets CERTIFICATION: I certify that the transfer of the above named patient to an Extended Care Facility is necessary for the continuing treatment of the diagnosis listed. The above information is true and accurate reflection of patient's current condition. Confidential - Redisclosure prohibited without a patient's written consent.
[2016-10-28] MEDS ORDERED: *HR* SitaGLIPtin 25 MG TABLET PO SCH (09:00)
== END 2016-10-27 20:15 | DRG 871 ==
LOC: EMEROO 20:55 → 2NENU 20:55 → EMEROO 10-22 04:21 → SUATTDRO 10-24 08:28
PROVIDERS: ADMIT Internal Medicine; ATTEND Internal Medicine

== ENCOUNTER 2018-02-02 10:30 | Observation (INO) ==
[2018-02-02 11:46] LABS: Basophils % 0.2 %; Eosinophils # 0.3 K/mcL (0.0-0.6); Eosinophils % 2.9 %; Hematocrit 43.6 % (35.3-44.9); Hemoglobin 13.7 g/dL (11.5-15.4); Immature Granulocytes % 0.5 % (0-4); Lymphocytes # 1.2 K/mcL (0.6-4.6); Lymphocytes % 11.8 %; Mean Corpuscular HGB Conc 31.4 g/dL (31.6-35.5); Mean Corpuscular Hemoglobin 32.9 pg (28.0-33.3); Mean Corpuscular Volume 104.6 fL (83.0-100.0); Monocytes # 0.7 K/mcL (0.0-1.3); Monocytes % 6.5 %; Platelet Count 166 K/mcL (140-400); Red Blood Count 4.17 M/mcL (3.82-4.97); Red Cell Distribution Width 13.1 % (11.5-14.5); Segmented Neutrophils % 78.1 %
[2018-02-02] MEDS ORDERED: Nitroglycerin 0.4 MG TAB.SUBL SL PRN (11:51)
[2018-02-02] MEDS ORDERED: Aspirin 81 MG TAB.CHEW PO STA (11:52)
[2018-02-02 12:04] LABS: Troponin I < 0.03 ng/mL (< 0.04)
[2018-02-02 12:07] LABS: BUN/Creatinine Ratio 28 (6-26); Blood Urea Nitrogen 20 mg/dL (8-23); Calcium 9.8 mg/dL (8.6-10.3); Carbon Dioxide 28 mEq/L (23-29); Chloride 102 mEq/L (98-107); Glucose 175 mg/dL (70-105); Osmolality,Calculated 293 (280-300); Potassium 4.6 mEq/L (3.5-5.1); Sodium 138 mEq/L (136-145); eGFR For African Americans > 60 (> 60); eGFR For Non-African Americans > 60 (> 60)
[2018-02-02] MEDS ORDERED: Isovue-370 500 ML INFUS..BTL IV ONE (12:59)
--- NOTE | 2018-02-02 14:00 | Emergency Department Note ---
Disposition Clinical Impression: Jaw pain, EKG, abnormal Disposition: Admitted As Inpatient Condition: Fair Referrals: Jordan Victoria MD [Primary Care Provider] - Time of Disposition: 16:10 General Adult HPI - General Chief complaint: ED Dental/Oral Stated complaint: facial pain, sore thoart Time Seen by Provider: 02/02/18 11:00 Source: patient Mode of arrival: ambulatory Limitations: no limitations Nursing Notes Reviewed: Yes Vital Signs Reviewed: Yes - History of Present Illness HPI Narrative: Patient is an 82-year-old female with a past medical history of DM, HLD, HTN, NV , thyroid disease presents for evaluation of left-sided jaw pain. Patient states the pain has been going on for the past 3 days and has waxing and waning. States the pain occurs around her gums on the left lower side of her jaw, and goes into the left neck. States she also has difficulty with swallowing as well as pain with swallowing. States that she has not had anything to eat today. Denies any fevers, chills, nausea, vomiting, diaphoresis , chest pain, back pain, shortness of breath or abdominal pain. She denies any injury. Pain Scale: 9 - Related Data Home Medications Medication Instructions Recorded Confirmed Cetirizine HCl [Zyrtec] 10 mg PO DAILY 10/22/16 02/02/18 Levothyroxine Sodium 50 mcg PO DAILY 10/22/16 02/02/18 Metformin HCl [Glucophage] 1,000 mg PO BID 10/22/16 02/02/18 Pravastatin Sodium [Pravachol] 40 mg PO DAILY 10/22/16 02/02/18 Cyanocobalamin (Vitamin B-12) 1 tab PO DAILY 02/02/18 02/02/18 [Vitamin B12] Glimepiride [Amaryl] 1 mg PO DAILY 02/02/18 02/02/18 Ipratropium [place] 1 spr NS DAILY 02/02/18 02/02/18 Ramipril [Altace] 10 mg PO DAILY 02/02/18 02/02/18 Warfarin Sodium [Warfarin Sodium] 5 mg PO NASH 02/02/18 02/02/18 Warfarin Sodium [Warfarin Sodium] 7.5 mg PO MOTUWETHFRSA 02/02/18 02/02/18 Previous Rx's Medication Instructions Recorded Metoprolol [Lopressor] 25 mg PO BID tablet 10/27/16 Allergies Allergy/AdvReac Type Severity Reaction Status Date / Time ampicillin Allergy Rash Verified 02/02/18 10:32 All systems ED: reviewed and negative except as stated. Review of Systems: As Per HPI Constitutional: Denies: fever, chills Eyes: Denies: vision change ENT ED: Reports: dental pain (Over left lower gums.) Cardiovascular: Denies: chest pain, palpitations Respiratory: Denies: cough, dyspnea, wheezes Gastrointestinal: Denies: abdominal pain, nausea, vomiting Genitourinary: Denies: urgency Musculoskeletal: Denies: back pain, neck pain Integumentary: Denies: rash, abrasion Neurological: Denies: headache, weakness, numbness, paresthesias, confusion, abnormal gait Psychiatric: Denies: anxiety, depression Endocrine: Denies: fatigue Past Medical History - Past Medical History Attestation: Yes The following information was validated with the patient. Medical history: Reports: diabetes, hyperlipidemia, hypertension, myocardial infarction, osteoporosis, thyroid disease Surgical history: Reports: cataract, cholecystectomy, orthopedic, other, other Psychiatric history: Reports: no psych history - Social History Smoking Status: Never smoker Smokeless Tobacco Status: No Alcohol use: Reports: none Drug use: Reports: none Physical Exam CONSTITUTIONAL: Well-appearing; well-nourished; A&O X 3, in no apparent distress HEAD: Normocephalic; atraumatic EYES: PERRL, no scleral icterus NOSE: The nose is normal in appearance without rhinorrhea NECK: No JVD or distended neck veins. Mild pain with palpation to the deep soft tissue of the left aspect of the anterior neck. Patient also has pain with palpation along the left jawline, however this is intermittent. RESP: Normal chest excursion with respiration; breath sounds clear and equal bilaterally; no wheezes, rhonchi, or rales CARD: Regular rhythm, without murmurs, rub or gallop ABD: Non-distended; non-tender, soft, without rigidity, rebound or guarding,no pulsatile mass CHEST: No pain with palpation SKIN: Normal for age and race; warm and dry without diaphoresis ; no apparent lesions EXTREMITIES: Pulses are 2 plus and equal times 4 extremities, no peripheral edema or calf muscle pain - General Limitations: no limitations General appearance: alert, in no apparent distress Course Course Narrative: Plan at this time is to check basic labs on the patient as well as perform an EKG to evaluate for cardiac etiology of the patient's atypical jaw pain. She also be treated with nitroglycerin to see if this improves her pain. Patient did have an echocardiogram performed in October 2016 that showed 65-70% with mild diastolic dysfunction and no wall motion abnormalities - Reevaluation(s) Reevaluation #1: Patient's pain did not improve with nitroglycerin and she also had difficulty swallowing her medications. Plan is times perform a CT soft tissue of the neck as well as a CTA of the neck to evaluate for arterial disease. Patient's EKG does show abnormalities when compared to the past mostly in the inferior and lateral leads that are T-wave abnormalities. Time: 14:08 Reevaluation #2: CTA of the neck was negative. Patient states her pain did improve mildly with the nitroglycerin on reevaluation. Discussed the patient's case with Dr. Hernández the hospice on-call and he agrees to accept the patient for further evaluation of her EKG changes and jaw pain. Time: 16:10 Vital Signs Temperature 98.0 F 02/02/18 10:32 Pulse Rate 73 02/02/18 10:32 Respiratory Rate 18 02/02/18 10:32 Blood Pressure 196/74 02/02/18 10:32 O2 Sat by Pulse Oximetry 95 02/02/18 10:32 Temperature 98.0 F 02/02/18 10:32 Pulse Rate 68 02/02/18 15:14 Respiratory Rate 15 02/02/18 15:14 Blood Pressure 169/80 02/02/18 15:14 O2 Sat by Pulse Oximetry 95 02/02/18 15:14 Oxygen Delivery Oxygen Delivery Room Air Medical Decision Making - Medical Records Medical records reviewed: Yes I reviewed the patient's medical records. - Lab Data Lab results reviewed: Yes I reviewed the patient's lab results. Result diagrams: 02/02/18 11:29 02/02/18 11:29 Lab Results 02/02/18 02/02/18 Range/Units 11:29 11:29 WBC 10.2 (4.3-11.1) K/mcL RBC 4.17 (3.82-4.97) M/mcL Hgb 13.7 (11.5-15.4) g/dL Hct 43.6 (35.3-44.9) % MCV 104.6 H (83.0-100.0) fL MCH 32.9 (28.0-33.3) pg MCHC 31.4 L (31.6-35.5) g/dL RDW 13.1 (11.5-14.5) % Plt Count 166 (140-400) K/mcL MPV 12.0 (9.4-12.4) fL Immature Gran % 0.5 (0-4) % Seg Neutrophils % 78.1 % Lymphocytes % 11.8 % Monocytes % 6.5 % Eosinophils % 2.9 % Basophils % 0.2 % Neutrophils # 8.0 (1.6-8.9) K/mcL Lymphocytes # 1.2 (0.6-4.6) K/mcL Monocytes # 0.7 (0.0-1.3) K/mcL Eosinophils # 0.3 (0.0-0.6) K/mcL Basophils # 0.0 (0.0-0.2) K/mcL Sodium 138 (136-145) mEq/L Potassium 4.6 (3.5-5.1) mEq/L Chloride 102 (98-107) mEq/L Carbon Dioxide 28 (23-29) mEq/L BUN 20 (8-23) mg/dL Creatinine 0.72 (0.60-1.20) mg/dL Est GFR ( Amer) > 60 (> 60) Est GFR (Non-Af Amer) > 60 (> 60) BUN/Creatinine Ratio 28 H (6-26) Glucose 175 H (70-105) mg/dL Calculated Osmolality 293 (280-300) Calcium 9.8 (8.6-10.3) mg/dL Troponin I < 0.03 (< 0.04) ng/mL - Radiology Data Radiology results reviewed: Yes I reviewed the patient's radiology results. Neck CTA 02/02/18 12:59 IMPRESSION: 1. Unremarkable CTA of the neck. No evidence of a dissection. D/ / 02/02/2018 15:32:01 Demarco Eckert MD / [email or web address] Interpreting Provider: Demarco Eckert MD - EKG Data EKG #1 EKG attestation: Yes I reviewed and interpreted this EKG. EKG results narrative: EKG done at 11:39 shows sinus rhythm at a rate of 68 bpm. Normal axis. T-wave inversions in II, III, aVF, V2 through V6. These EKG findings are new when compared to patient's last EKG performed on October 242016.
--- NOTE | 2018-02-02 17:32 | Internal Med History&Physical ---
Date of Encounter: 02/02/18 Time of Encounter: 17:00 Internal Medicine - H&P: HPI Chief complaint: Left facial pain and throat pain Admitted From: Emergency Dept Plans for Post Hospital Care: Home History of present illness: Ms. Rockwell is a 82 year old female patient with history of diabetes, hypertension, hyperlipidemia, atrial fibrillation presented to the ER with complaints of pain on the left side of her face involving her jaw line going up to her for head along with pain going down her throat. Was very tender prior to arrival here. Initially she had reported that the pain was 9 out of 10 in severity. She received nitroglycerin in the ER. Her pain seems to have improved now. Right now she complains pain mainly with swallowing. She denies any chest pain, shortness of breath. No fever or chills. Pain has been going on for 2-3 days and has been maxing and waning. No nausea or vomiting. No recent hospitalizations. It is that she did have a heart attack one year back. Reviewing her records she had mild elevation in troponin which was believed to be due to demand ischemia due to A. fib with RVR. She did not have any cardiac catheterization or stress test at that time. Past Med Surg Social Fam HX - Past Medical History Attestation: Yes The following information was validated with the patient. Source: patient Medical history: diabetes, hyperlipidemia, hypertension, myocardial infarction, osteoporosis, thyroid disease Additional medical history: hematuria, symptomatic cystocele, overactive bladder , left renal stone, UTI, stomach ulcer Psychiatric history: no psych history - Past Surgical History Surgical History: cataract, cholecystectomy, orthopedic, other, other Additional surgical history: heart cath, bilateral shoulders replaced, left biceps tendodesis, cystoscopy - Social History Smoking Status: Never smoker Smokeless Tobacco Status: No Alcohol use: none Drug use: none - Additional Family History Additional family history: Family history reviewed and found to be noncontributory at this time. Internal Medicine - H&P: Meds Cetirizine HCl [Zyrtec] 10 mg PO DAILY 10/22/16 [History] Levothyroxine Sodium 50 mcg PO DAILY 10/22/16 [History] Metformin HCl [Glucophage] 1,000 mg PO BID 10/22/16 [History] Pravastatin Sodium [Pravachol] 40 mg PO DAILY 10/22/16 [History] Metoprolol [Lopressor] 25 mg PO BID tablet 10/27/16 [Rx] Cyanocobalamin (Vitamin B-12) [Vitamin B12] 1 tab PO DAILY 02/02/18 [History] Glimepiride [Amaryl] 1 mg PO DAILY 02/02/18 [History] Ipratropium [place] 1 spr NS DAILY 02/02/18 [History] Ramipril [Altace] 10 mg PO DAILY 02/02/18 [History] Warfarin Sodium [Warfarin Sodium] 5 mg PO NASH 02/02/18 [History] Warfarin Sodium [Warfarin Sodium] 7.5 mg PO MOTUWETHFRSA 02/02/18 [History] 3 Allergy/AdvReac Type Severity Reaction Status Date / Time ampicillin Allergy Rash Verified 02/02/18 10:32 All Systems PM: A 10-system review of systems was performed and is negative for pertinent findings except as documented above in the HPI. - Constitutional Constitutional: no chills, no fever(s), no night sweats - EENT Eyes: no change in vision, no discharge, no pain, no photophobia Ears: no ear discharge, no ear pain, no tinnitus Nose, mouth and throat: neck pain, no dysphagia, no nasal discharge, no sore throat Additional comments: Left face pain - Cardiovascular Cardiovascular ROS IM: no chest pain, no diaphoresis, no dyspnea, no lightheadedness, no palpitations, no syncope - Respiratory Respiratory: no cough, no dyspnea, no wheezing, no excessive phlegm production - Gastrointestinal Gastrointestinal: no abdominal pain, no diarrhea, no hematemesis, no hematochezia, no melena, no nausea, no vomiting - Genitourinary Genitourinary: no change in urinary stream, no dysuria, no flank pain, no hematuria - Musculoskeletal Musculoskeletal ROS IM: no numbness, no tingling - Integumentary Integumentary IM: no rash, no unusual bruising - Neurological Neurological ROS: no confusion, no convulsions, no focal weakness, no numbness, no tingling, no tremor(s) - Hematologic/Lymphatic Hematologic/Lymphatic: no easy bruising - Constitutional Vitals: Temp Pulse Resp BP Pulse Ox 98.0 F 88 15 151/77 98 02/02/18 10:32 02/02/18 17:13 02/02/18 17:13 02/02/18 17:13 02/02/18 17:13 General appearance: Present: cooperative, A&O X 3, answers questions appropriately - ENT Additional comments: Left part of the face nontender to palpation. - Neck Neck exam general surgery: Present: supple, trachea midline. Absent: lymphadenopathy Additional comments: No erythema - Respiratory Respiratory exam: Present: CTAB. Absent: accessory muscle use, rales, rhonchi, wheezes - Cardiovascular Cardiovascular exam: Present: RRR, +S1, +S2. Absent: diastolic murmur, gallop, rubs, systolic murmur - GI/Abdominal GI/Abdominal exam: Present: normal bowel sounds, soft, no peritoneal signs. Absent: distended, tenderness - Extremities Exam Extremities exam: Present: warm, radial pulses palpable and symmetrical. Absent : calf tenderness, cyanotic, pedal edema - Neurological Exam Neurological exam: Present: CN II-XII intact, oriented X3, no focal deficits. Absent: pronater drift, facial droop, speech deficit - Skin Skin exam: Present: dry, intact Internal Med - H&P Results - Labs CBC & Chem 7: 02/02/18 11:29 02/02/18 11:29 - EKG Data -: EKG Interpreted by Myself - EKG Data When compared to previous EKG: there are significant changes EKG comments: 02/02/18 17:35 EKG changes showing inferior wall T-wave inversions not present on prior EKG. - Assessment and plan (1) Facial pain, acute Current Visit: Yes Status: Acute Assessment and plan: Acute pain of the left side of the face along with throat pain. Uncertain etiology. Differential diagnosis includes trigeminal neuralgia or developing zoster or pharyngitis we will treat symptomatically for now. Cepacol lozenges for throat pain. Tylenol as needed for pain. (2) EKG, abnormal Current Visit: Yes Status: Acute Assessment and plan: Abnormal EKG changes noted. Will trend troponins. Monitor with telemetry. Get 2-D echocardiogram. (3) Diabetes Current Visit: Yes Status: Chronic Assessment and plan: Monitor blood sugars. Diabetic diet when patient is able to tolerate diet. Sliding scale insulin. Qualifiers: Diabetes mellitus type: type 2 Diabetes mellitus mcfp insulin use: without mcfp use Diabetes mellitus complication status: without complication Qualified Code(s): E11.9 - Type 2 diabetes mellitus without complications (4) HTN (hypertension) Current Visit: Yes Status: Chronic Assessment and plan: Monitor blood pressure. Continue home medications. Qualifiers: Hypertension type: essential hypertension Qualified Code(s): I10 - Essential (primary) hypertension - Time Spent With Patient Total time spent is greater than 50% in coordination of care (as documented) at patient's floor/unit and/or counseling patient:
[2018-02-02] MEDS ORDERED: Naloxone 0.4 MG/ML INJ IVP PRN (17:39)
[2018-02-02] MEDS ORDERED: Ibuprofen 400 MG TABLET PO PRN (17:39)
[2018-02-02] MEDS ORDERED: D5% in Water 1,000 ML IVC PRN (17:41)
[2018-02-02] MEDS ORDERED: *HR* Dextrose 50 % in Water (Syg) 50 ML SYRINGE IVP PRN (17:41)
[2018-02-02] MEDS ORDERED: Dextrose Gel 15 GM/37.5 ML TUBE PO PRN ×2 (17:41)
[2018-02-02] MEDS ORDERED: Warfarin perPT PO PRN (18:00)
[2018-02-02 18:30] LABS: INR 2.5; Prothrombin Time 27.5 Seconds (9.4-12.1)
[2018-02-02] MEDS ORDERED: *HR* Warfarin 7.5 MG TABLET PO ONE (18:45)
[2018-02-02] MEDS: Acetaminophen 325 MG TABLET PO PRN (19:01)
[2018-02-02] MEDS ORDERED: Insulin LISPRO 300 UNITS/3 ML VIAL SQ SCH (21:00)
--- NOTE | 2018-02-02 21:00 | Emergency Department Note ---
Disposition Clinical Impression: Jaw pain, EKG, abnormal Disposition: Admitted As Inpatient Condition: Fair General Adult HPI - General Chief complaint: ED Dental/Oral Stated complaint: facial pain, sore thoart Time Seen by Provider: 02/02/18 11:00 Source: patient Mode of arrival: ambulatory Limitations: no limitations Nursing Notes Reviewed: Yes Vital Signs Reviewed: Yes - History of Present Illness HPI Narrative: 82-year-old female presents ED because of facial pain. She complains of harsh pain in the left jaw and left neck. Uncertain as to what provokes the pain. No other associated symptoms except for some pain with swallowing. Denies dyspnea. No chest discomfort. No diaphoresis. No vomiting. No exertional provocation of pain. Onset (ago): hour(s) Location: face Radiation: non-radiation Pain Severity: moderate Pain Scale: 9 Improves with: nothing Worsens with: nothing Associated symptoms: Reports: denies other symptoms - Related Data Home Medications Medication Instructions Recorded Confirmed Cetirizine HCl [Zyrtec] 10 mg PO DAILY 10/22/16 02/02/18 Levothyroxine Sodium 50 mcg PO DAILY 10/22/16 02/02/18 Metformin HCl [Glucophage] 1,000 mg PO BID 10/22/16 02/02/18 Pravastatin Sodium [Pravachol] 40 mg PO DAILY 10/22/16 02/02/18 Cyanocobalamin (Vitamin B-12) 1 tab PO DAILY 02/02/18 02/02/18 [Vitamin B12] Glimepiride [Amaryl] 1 mg PO DAILY 02/02/18 02/02/18 Ipratropium [place] 1 spr NS DAILY 02/02/18 02/02/18 Ramipril [Altace] 10 mg PO DAILY 02/02/18 02/02/18 Warfarin Sodium [Warfarin Sodium] 5 mg PO NASH 02/02/18 02/02/18 Warfarin Sodium [Warfarin Sodium] 7.5 mg PO MOTUWETHFRSA 02/02/18 02/02/18 Previous Rx's Medication Instructions Recorded Metoprolol [Lopressor] 25 mg PO BID tablet 10/27/16 Allergies Allergy/AdvReac Type Severity Reaction Status Date / Time ampicillin Allergy Rash Verified 02/02/18 10:32 All systems ED: reviewed and negative except as stated. Constitutional: Denies: fever, chills Eyes: Denies: vision change ENT ED: Reports: dental pain (Over left lower gums.) Cardiovascular: Denies: chest pain, palpitations Respiratory: Denies: cough, dyspnea, wheezes Gastrointestinal: Denies: abdominal pain, nausea, vomiting Genitourinary: Denies: urgency Musculoskeletal: Denies: back pain, neck pain Integumentary: Denies: rash, abrasion Neurological: Denies: headache, weakness, numbness, paresthesias, confusion, abnormal gait Psychiatric: Denies: anxiety, depression Endocrine: Denies: fatigue Past Medical History - Past Medical History Attestation: Yes The following information was validated with the patient. Medical history: Reports: diabetes, hyperlipidemia, hypertension, myocardial infarction, osteoporosis, thyroid disease Surgical history: Reports: cataract, cholecystectomy, orthopedic, other, other Psychiatric history: Reports: no psych history - Social History Smoking Status: Never smoker Smokeless Tobacco Status: No Alcohol use: Reports: none Drug use: Reports: none Physical Exam - General Limitations: no limitations General appearance: alert, in no apparent distress - Head Head exam: atraumatic, normocephalic - Eye Eye exam: Present: normal appearance - ENT ENT exam: normal exam, normal oropharynx, other (She is edentulous without any gingival tenderness or abscesses. No cervical adenopathy. No carotid bruits.) - Neck Neck exam: Present: normal inspection - Chest Chest inspection: Present: normal inspection - Respiratory Respiratory exam: Present: normal lung sounds bilaterally - Cardiovascular Cardiovascular exam: Present: regular rate, normal rhythm - Abdominal Exam Abdominal exam: Present: soft, Non-Tender - Extremities Exam Extremities exam: Absent: tenderness - Back Exam Back exam: Present: normal inspection. Absent: CVA tenderness (R), CVA tenderness (L) - Neurological Exam Neurological exam: Present: alert, oriented X3 - Psychiatric Psychiatric exam: Present: normal affect - Skin Skin exam: Present: warm, dry Course - Reevaluation(s) Reevaluation #1: CT of the neck was negative for any acute process. Metabolic workup was unremarkable. EKG was notably abnormal compared to last EKG from October 2016. The EKG from today revealed ST depression and T-wave inversions in leads 1, aVL V5 and V6 concerning for lateral wall ischemia. She will be admitted for further evaluation and serial enzymes Vital Signs Temperature 98.0 F 02/02/18 10:32 Pulse Rate 73 06/27/18 10:32 Respiratory Rate 18 02/02/18 10:32 Blood Pressure 196/74 02/02/18 10:32 O2 Sat by Pulse Oximetry 95 02/02/18 10:32 Temperature 98.4 F 02/02/18 19:26 Pulse Rate 73 02/02/18 19:26 Respiratory Rate 18 02/02/18 19:26 Blood Pressure 150/87 02/02/18 19:26 O2 Sat by Pulse Oximetry 96 02/02/18 19:26 Oxygen Delivery Oxygen Delivery Room Air Medical Decision Making - Lab Data Result diagrams: 02/02/18 11:29 02/02/18 11:29 Lab Results 02/02/18 02/02/18 Range/Units 11:29 11:29 WBC 10.2 (4.3-11.1) K/mcL RBC 4.17 (3.82-4.97) M/mcL Hgb 13.7 (11.5-15.4) g/dL Hct 43.6 (35.3-44.9) % MCV 104.6 H (83.0-100.0) fL MCH 32.9 (28.0-33.3) pg MCHC 31.4 L (31.6-35.5) g/dL RDW 13.1 (11.5-14.5) % Plt Count 166 (140-400) K/mcL MPV 12.0 (9.4-12.4) fL Immature Gran % 0.5 (0-4) % Seg Neutrophils % 78.1 % Lymphocytes % 11.8 % Monocytes % 6.5 % Eosinophils % 2.9 % Basophils % 0.2 % Neutrophils # 8.0 (1.6-8.9) K/mcL Lymphocytes # 1.2 (0.6-4.6) K/mcL Monocytes # 0.7 (0.0-1.3) K/mcL Eosinophils # 0.3 (0.0-0.6) K/mcL Basophils # 0.0 (0.0-0.2) K/mcL Sodium 138 (136-145) mEq/L Potassium 4.6 (3.5-5.1) mEq/L Chloride 102 (98-107) mEq/L Carbon Dioxide 28 (23-29) mEq/L BUN 20 (8-23) mg/dL Creatinine 0.72 (0.60-1.20) mg/dL Est GFR ( Amer) > 60 (> 60) Est GFR (Non-Af Amer) > 60 (> 60) BUN/Creatinine Ratio 28 H (6-26) Glucose 175 H (70-105) mg/dL Calculated Osmolality 293 (280-300) Calcium 9.8 (8.6-10.3) mg/dL Troponin I < 0.03 (< 0.04) ng/mL Attestation Statement - Attestation Attestation: I examined this patient and my medical decision-making was reviewed with the Resident Physician. I agree with the documented findings, disposition and treatment plan as described except to the extent set forth below.
[2018-02-03 01:05] LABS: Basophils % 0.3 %; Eosinophils # 0.1 K/mcL (0.0-0.6); Eosinophils % 0.6 %; Hematocrit 38.1 % (35.3-44.9); Hemoglobin 12.4 g/dL (11.5-15.4); Immature Granulocytes % 0.4 % (0-4); Lymphocytes # 1.5 K/mcL (0.6-4.6); Lymphocytes % 14.7 %; Mean Corpuscular HGB Conc 32.5 g/dL (31.6-35.5); Mean Corpuscular Hemoglobin 33.6 pg (28.0-33.3); Mean Corpuscular Volume 103.3 fL (83.0-100.0); Mean Platelet Volume 12.1 fL (9.4-12.4); Monocytes # 0.9 K/mcL (0.0-1.3); Monocytes % 8.8 %; Neutrophils # 7.7 K/mcL (1.6-8.9); Platelet Count 148 K/mcL (140-400); Red Blood Count 3.69 M/mcL (3.82-4.97); Red Cell Distribution Width 13.1 % (11.5-14.5); Segmented Neutrophils % 75.2 %
[2018-02-03 01:14] LABS: INR 3.3; Prothrombin Time 36.3 Seconds (9.4-12.1)
[2018-02-03 01:25] LABS: BUN/Creatinine Ratio 29 (6-26); Blood Urea Nitrogen 18 mg/dL (8-23); Calcium 8.9 mg/dL (8.6-10.3); Carbon Dioxide 26 mEq/L (23-29); Chloride 103 mEq/L (98-107); Glucose 163 mg/dL (70-105); Osmolality,Calculated 285 (280-300); Potassium 4.1 mEq/L (3.5-5.1); Sodium 135 mEq/L (136-145); eGFR For African Americans > 60 (> 60); eGFR For Non-African Americans > 60 (> 60)
[2018-02-03] MEDS: Acetaminophen 325 MG TABLET PO PRN (06:05)
[2018-02-03] MEDS: Insulin LISPRO 300 UNITS/3 ML VIAL SQ SCH ×2 (08:15→12:24)
[2018-02-03] MEDS ORDERED: Loratadine 10 MG TABLET PO SCH (09:00)
[2018-02-03] MEDS ORDERED: Cyanocobalamin (B-12) 1,000 MCG TABLET PO SCH (09:00)
[2018-02-03] MEDS ORDERED: Lisinopril 20 MG TABLET PO SCH (09:00)
[2018-02-03] MEDS ORDERED: ATROVENT NASAL SPRAY AER SCH (09:30)
[2018-02-03] MEDS ORDERED: Ipratropium 1 PUFF INHALER IH SCH (10:00)
[2018-02-03 11:08] VITALS: BP 135/70
--- NOTE | 2018-02-03 14:16 | Discharge Summary ---
<Moris Arriaga - Last Filed: 02/03/18 14:19> Orders not resulted at time of discharge: Pending orders 02/04/18 04:00 PT/INR [Prothrombin Time INR] [COAG] AM 0400 02/05/18 04:00 PT/INR [Prothrombin Time INR] [COAG] AM 0400 02/06/18 04:00 PT/INR [Prothrombin Time INR] [COAG] AM 0400 02/07/18 04:00 PT/INR [Prothrombin Time INR] [COAG] AM 0400 Date of Encounter: 02/03/18 Time of Encounter: 08:25 - Discharge Diagnosis (1) Diabetes Priority: Secondary Status: Chronic Qualifiers: Diabetes mellitus type: type 2 Diabetes mellitus fdc insulin use: without intermodal customer service use Diabetes mellitus complication status: without complication Qualified Code(s): E11.9 - Type 2 diabetes mellitus without complications (2) HTN (hypertension) Priority: Secondary Status: Chronic Qualifiers: Hypertension type: essential hypertension Qualified Code(s): I10 - Essential (primary) hypertension (3) EKG, abnormal Priority: Secondary Status: Acute (4) Facial pain, acute Priority: Primary Status: Acute Assessment and Plan: Improving Possibly parotid sialoadenitis Unlikely cardiac as pain is mildly reproducable with palpation, troponins neg, no chest pain or dyspnea. Unlikely giant cell arteritis as no vision changes and no jaw claudication. Other DDx includes trigeminal neuralgia (though patient denies electical pain); dental caries/abscess (no visible ulcerations, no pain with eating, afebrile), otitis media (normal TMs bilaterally). Hospital course: Ms. Rockwell is a 82 year old female with history of diabetes, hypertension, hyperlipidemia, atrial fibrillation presented to the ER with complaints of acute pain on the left side of her face involving her jaw and some soreness in her throat/neck x 2 days. Reported by nursing to have been clutching her jaw in pain on arrival. Initially she had reported that the pain was 9 out of 10 in severity. She received nitroglycerin in the ER. She denied any chest pain, shortness of breath. No fever or chills. No nausea or vomiting. No recent hospitalizations. Never had pain like this before. Denies that eating or activity makes pain worse. History of demand ischemia due to A. fib with RVR. Echo 1 year ago was essentially normal with EF 65-70%. This AM Patient notes pain has almost completely resolved, mild discomfort with palpation of left cheek/parotid gland. Otherwise no signs of infection, no indication of imaging at this time. Diagnosis possibly parotid sialoadenitis with a stone that has passed; recommend good oral hydration. Unlikely cardiac as pain is mildly reproducable with palpation, troponins neg, no chest pain or dyspnea. Unlikely giant cell arteritis as no vision changes and no jaw claudication. Other DDx includes trigeminal neuralgia (though patient denies electical pain); dental caries/ abscess (no visible ulcerations, no pain with eating, afebrile), otitis media ( normal TMs bilaterally). She complained of having some difficulty swallowing, seen by speech and they recommended temporarily softed diet while patient isn't wearing dentures. Plan to discharge home with parameters for symptoms to seek medical care. Discharge discussed with: patient, family, nurse - Time Spent with Patient Total time spent providing and/or coordinating discharge services: Less than 30 minutes - Discharge Medications Home Medications: Cetirizine HCl [Zyrtec] 10 mg PO DAILY 10/22/16 [History] Levothyroxine Sodium 50 mcg PO DAILY 10/22/16 [History] Metformin HCl [Glucophage] 1,000 mg PO BID 10/22/16 [History] Pravastatin Sodium [Pravachol] 40 mg PO DAILY 10/22/16 [History] Metoprolol [Lopressor] 25 mg PO BID tablet 10/27/16 [Rx] Cyanocobalamin (Vitamin B-12) [Vitamin B12] 1 tab PO DAILY 02/02/18 [History] Glimepiride [Amaryl] 1 mg PO DAILY 02/02/18 [History] Ipratropium [place] 1 spr NS DAILY 02/02/18 [History] Ramipril [Altace] 10 mg PO DAILY 02/02/18 [History] Warfarin Sodium 5 mg PO NASH 02/02/18 [History] Warfarin Sodium 7.5 mg PO MOTUWETHFRSA 02/02/18 [History] Allergies/Adverse Reactions: 3 Allergy/AdvReac Type Severity Reaction Status Date / Time ampicillin Allergy Rash Verified 02/02/18 10:32 Date of admission: 02/02/18 17:01 Primary care physician: Jordan Victoria MD Discharging clinician: Ricardo Cruz Anticipated date of discharge: 02/03/18 - Constitutional Vitals: Temp Pulse Resp BP Pulse Ox 97.6 F 52 15 135/70 96 02/03/18 07:17 02/03/18 11:05 02/03/18 11:05 02/03/18 11:05 02/03/18 07:17 General appearance: Present: cooperative, A&O X 3, pleasant, no acute distress, answers questions appropriately - Head Head exam: Present: atraumatic, normal inspection, normocephalic - Eye Eye exam: Present: EOMI, normal appearance, PERRL, conjuntiva pink, sclera anicteric Pupils: Present: PERRL - ENT ENT exam: Present: mucous membranes moist, normal oropharynx, TM's normal bilaterally Additional comments: minimal tenderness to palpation over left cheek/parotid gland. No abnormal swelling, discoloration, or nodules noted. No gum/mucosal ulcerations noted. - Neck Neck exam general surgery: Present: full ROM, normal inspection, supple, trachea midline. Absent: lymphadenopathy - Respiratory Respiratory exam: Present: CTAB. Absent: respiratory distress, rhonchi, stridor , wheezes - Cardiovascular Cardiovascular exam: Present: RRR, +S1, +S2. Absent: diastolic murmur, systolic murmur - GI/Abdominal GI/Abdominal exam: Present: normal bowel sounds, soft. Absent: distended, firm , guarding, tenderness - Extremities Exam Extremities exam: Present: warm. Absent: calf tenderness, cyanotic, pedal edema , tenderness - Neurological Exam Neurological exam: Present: alert, oriented X3, no focal deficits. Absent: speech deficit - Psychiatric Psychiatric exam: Present: normal affect, normal mood - Skin Skin exam: Present: intact, normal color, warm. Absent: cyanosis, rash - Patient Status Disposition: Home, Self-Care Condition: Good Functional capacity at discharge: independent ambulation Overall status at discharge: patient is back to baseline - Discharge Instructions Instructions: Parotid Duct Obstruction (GEN) Follow Up With: Jordan Victoria MD [Primary Care Provider] - 02/11/18 10:15 am Forms: ED Satisfaction Letter Additional Instructions: Recommend follow up with your primary care provider within the week or sooner if symptoms return. Recommend good oral hygiene and staying well hydrated. May also try hard candies to help if you feel your mouth become dry, however caution with your blood sugars. Return or seek medical care if you have new or worsening symptoms such as fever , vision changes, pain with chewing, headache, sharp-shooting electrical facial pain, trouble swallowing, chest pain, or shortness or breath. - Diet and Activity Activity: resume usual activities as tolerated Diet: advance to your usual diet <Ricardo Cruz - Last Filed: 02/03/18 16:03> Date of Encounter: 02/03/18 - Discharge Diagnosis (1) Diabetes Status: Chronic Qualifiers: Diabetes mellitus type: type 2 Diabetes mellitus intermodal customer service insulin use: without intermodal customer service use Diabetes mellitus complication status: without complication Qualified Code(s): E11.9 - Type 2 diabetes mellitus without complications (2) HTN (hypertension) Status: Chronic Qualifiers: Hypertension type: essential hypertension Qualified Code(s): I10 - Essential (primary) hypertension (3) EKG, abnormal Status: Acute (4) Facial pain, acute Status: Acute Hospital course: Ms. Rockwell is a 82 year old female - Time Spent with Patient Total time spent providing and/or coordinating discharge services: Date of admission: 02/02/18 17:01 Primary care physician: Jordan Victoria MD - Constitutional Vitals: Temp Pulse Resp BP Pulse Ox 97.6 F 52 15 135/70 96 02/03/18 07:17 02/03/18 11:05 02/03/18 11:05 02/03/18 11:05 02/03/18 07:17 - Attending Attestation I performed an independent interview and examine of this patient. I agree with the findings, assessment, and plan of Dr. Arriaga, internal medicine resident. Original diagnosis as indicated in discharge summary. We could not pinpoint the exact etiology for her pain, nonetheless it has resolved. Recommend follow- up with her primary care provider. Patient otherwise is doing well and deemed stable for discharge. He did recommend she stay well hydrated. All else as outlined above.
--- NOTE | 2018-02-03 16:42 | Electrocardiograph Report ---
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: : [id number] Requested By: Osorio Oviedo Order Number: [id number] Reading MD: Libby Santamaria Measurements Intervals [place] Rate: 68 P: 69 AL: 133 QRS: -16 QRSD: 76 T: -47 QT: 370 QTc: 387 Interpretive Statements SINUS RHYTHM POSSIBLE LEFT ATRIAL ENLARGEMENT [-0.1mV P WAVE IN V1/V2] POSSIBLE RIGHT VENTRICULAR CONDUCTION DELAY [RSR (QR) IN V1/V2] POSSIBLE ANTERIOR MYOCARDIAL INFARCTION [30 ms Q WAVE IN V3/V4, OR R < 0.2 mV IN V4], OF INDETERMINATE AGE MODERATE T-WAVE ABNORMALITY, CONSIDER LATERAL ISCHEMIA [-0.1+ mV T WAVE IN I/aVL/V5/V6] Electronically Signed On 02-03-2018 16:41:25 EDT by Libby Santamaria
== END 2018-02-03 15:39 | disposition home or self-care (01) ==
LOC: 2NENU 10:30 → EMEROO 10:30 → 2NENU 17:55
PROVIDERS: ADMIT Internal Medicine; ATTEND Internal Medicine

== ENCOUNTER 2020-07-31 03:28 | Observation (INO) ==
[2020-07-31 04:39] LABS: Bacteria,Urine Few per hpf (None-Few); Bilirubin,Urine Negative (Negative); Blood,Urine Moderate (Negative); Clarity,Urine Clear (Clear); Color,Urine Light-Yellow (Yellow); Glucose,Urine (UA) >=1000 mg/dL (Normal); Ketones,Urine 60 mg/dL (Negative); Leukocyte Esterase,Urine Small (Negative); Mucus,Urine Few per lpf (None-Few); Nitrite,Urine Positive (Negative); PH,Urine 5.5 pH Units (5.0-8.0); Protein,Urine 30 mg/dL (Neg-Trace); Specific Gravity,Urine > 1.030 (1.010-1.025); Squamous Epithelial Cell,Urine Few per hpf (None-Few); Urobilinogen,Urine Normal (Normal)
[2020-07-31 04:57] LABS: Basophils % 0.1 %; Eosinophils % 0.1 %; Hematocrit 41.2 % (35.3-44.9); Hemoglobin 13.1 g/dL (11.5-15.4); Immature Granulocytes % 0.7 % (0-4); Lymphocytes # 0.7 K/mcL (0.6-4.6); Lymphocytes % 5.1 %; Mean Corpuscular HGB Conc 31.8 g/dL (31.6-35.5); Mean Corpuscular Hemoglobin 32.7 pg (28.0-33.3); Mean Corpuscular Volume 102.7 fL (83.0-100.0); Monocytes # 0.8 K/mcL (0.0-1.3); Monocytes % 5.8 %; Platelet Count 146 K/mcL (140-400); Red Blood Count 4.01 M/mcL (3.82-4.97); Red Cell Distribution Width 12.2 % (11.5-14.5); Segmented Neutrophils % 88.2 %; White Blood Count 13.5 K/mcL (4.3-11.1)
[2020-07-31 05:02] LABS: INR 2.7; Prothrombin Time 30.9 Seconds (9.4-12.1)
[2020-07-31 05:21] LABS: BUN/Creatinine Ratio 26 (6-26); Blood Urea Nitrogen 19 mg/dL (8-23); C-Reactive Protein 32 mg/L (Less than 10); Calcium 9.2 mg/dL (8.6-10.3); Carbon Dioxide 22 mEq/L (23-29); Chloride 98 mEq/L (98-107); Glucose 411 mg/dL (70-105); Osmolality,Calculated 296 (280-300); Potassium 4.2 mEq/L (3.5-5.1); Sodium 133 mEq/L (136-145); eGFR For African Americans > 60 (> 60); eGFR For Non-African Americans > 60 (> 60)
[2020-07-31] MEDS ORDERED: Insulin Regular, Human 100 UNIT/ML SUBQ ONE (05:22)
[2020-07-31] MEDS ORDERED: 0.9 % Sodium Chloride 1,000 ML IVC STA (05:23)
[2020-07-31] MEDS ORDERED: Naloxone 0.4 MG/ML INJ IVP PRN (09:56)
[2020-07-31] MEDS ORDERED: *HR* HYDROcodone/Acet 5/325 mg TABLET PO PRN (10:02)
[2020-07-31] MEDS ORDERED: *HR* OxyCODONE Immed Rel 5 MG TABLET PO PRN (10:02)
[2020-07-31] MEDS ORDERED: Acetaminophen 325 MG TABLET PO PRN (10:02)
[2020-07-31] MEDS ORDERED: D5% in Water 1,000 ML IVC PRN (12:14)
[2020-07-31] MEDS ORDERED: *HR* Dextrose 50 % in Water (Vial) 50 ML VIAL IVP PRN (12:14)
[2020-07-31] MEDS ORDERED: Dextrose Gel 15 GM/37.5 ML TUBE PO PRN ×2 (12:14)
[2020-07-31] MEDS: Insulin LISPRO 300 UNITS/3 ML VIAL SUBQ SCH ×2 (16:28→21:01)
[2020-07-31] MEDS ORDERED: Insulin DETEMIR 100 UNIT/ML X5UNITS SUBQ ONE (16:33)
[2020-07-31] MEDS ORDERED: *HR* Phytonadione 5 MG TABLET PO ONE (16:53)
[2020-07-31] MEDS ORDERED: Insulin LISPRO 300 UNITS/3 ML VIAL SQ SCH (17:00)
[2020-07-31] MEDS: Cefepime HCl 2,000 MG in Water for inj. (sterile) 20 ML IVP SCH ×2 (17:40→23:22)
[2020-07-31] MEDS ORDERED: *HR* Heparin 5,000 UNIT/ML VIAL SQ SCH (18:00)
[2020-08-01] MEDS ORDERED: *HR* Labetalol 20 MG/4 ML SYRINGE IVP ONE (04:18)
[2020-08-01] MEDS: Insulin LISPRO 300 UNITS/3 ML VIAL SUBQ SCH ×4 (08:41→21:17)
[2020-08-01 08:48] LABS: Lymphocytes % 12.1 %; Mean Corpuscular Hemoglobin 32.8 pg (28.0-33.3); Mean Platelet Volume 13.1 fL (9.4-12.4); Platelet Count 149 K/mcL (140-400)
[2020-08-01 08:50] LABS: Basophils % 0.2 %; Eosinophils # 0.1 K/mcL (0.0-0.6); Eosinophils % 1.4 %; Hematocrit 42.7 % (35.3-44.9); Hemoglobin 13.4 g/dL (11.5-15.4); Immature Granulocytes % 0.8 % (0-4); Immature Platelets 11.1 % (1.1-6.1); Lymphocytes # 1.2 K/mcL (0.6-4.6); Mean Corpuscular HGB Conc 31.4 g/dL (31.6-35.5); Mean Corpuscular Volume 104.4 fL (83.0-100.0); Monocytes # 0.5 K/mcL (0.0-1.3); Red Blood Count 4.09 M/mcL (3.82-4.97); Red Cell Distribution Width 12.1 % (11.5-14.5); Segmented Neutrophils % 80.5 %; White Blood Count 9.9 K/mcL (4.3-11.1)
[2020-08-01] MEDS: Cefepime HCl 2,000 MG in Water for inj. (sterile) 20 ML IVP SCH ×3 (08:57→21:18)
[2020-08-01 09:00] LABS: INR 1.5; Prothrombin Time 16.8 Seconds (9.4-12.1)
[2020-08-01 09:03] LABS: Activated Partial Thrombo Time 31.7 Seconds (26.0-36.0)
[2020-08-01 09:07] LABS: BUN/Creatinine Ratio 21 (6-26); Blood Urea Nitrogen 14 mg/dL (8-23); Calcium 8.9 mg/dL (8.6-10.3); Carbon Dioxide 22 mEq/L (23-29); Chloride 103 mEq/L (98-107); Glucose 305 mg/dL (70-105); Osmolality,Calculated 294 (280-300); Potassium 3.9 mEq/L (3.5-5.1); Sodium 136 mEq/L (136-145); eGFR For African Americans > 60 (> 60); eGFR For Non-African Americans > 60 (> 60)
[2020-08-01] MEDS: amLODIPine 5 MG TABLET PO SCH (17:01)
[2020-08-01] MEDS ORDERED: Insulin DETEMIR 100 UNIT/ML X5UNITS SUBQ SCH (21:00)
[2020-08-02 03:56] LABS: Basophils % 0.2 %; Eosinophils # 0.3 K/mcL (0.0-0.6); Eosinophils % 3.6 %; Hematocrit 39.8 % (35.3-44.9); Hemoglobin 12.7 g/dL (11.5-15.4); Immature Granulocytes % 0.3 % (0-4); Lymphocytes # 2.2 K/mcL (0.6-4.6); Mean Corpuscular HGB Conc 31.9 g/dL (31.6-35.5); Mean Corpuscular Hemoglobin 33.4 pg (28.0-33.3); Mean Corpuscular Volume 104.7 fL (83.0-100.0); Mean Platelet Volume 12.6 fL (9.4-12.4); Monocytes # 0.7 K/mcL (0.0-1.3); Monocytes % 7.4 %; Neutrophils # 5.8 K/mcL (1.6-8.9); Platelet Count 166 K/mcL (140-400); Red Cell Distribution Width 12.2 % (11.5-14.5); Segmented Neutrophils % 64.5 %
[2020-08-02 04:22] LABS: BUN/Creatinine Ratio 22 (6-26); Blood Urea Nitrogen 14 mg/dL (8-23); Carbon Dioxide 27 mEq/L (23-29); Chloride 106 mEq/L (98-107); Glucose 77 mg/dL (70-105); Osmolality,Calculated 289 (280-300); Potassium 3.2 mEq/L (3.5-5.1); Sodium 140 mEq/L (136-145); eGFR For African Americans > 60 (> 60); eGFR For Non-African Americans > 60 (> 60)
[2020-08-02] MEDS: Insulin LISPRO 300 UNITS/3 ML VIAL SUBQ SCH ×2 (07:26→12:09)
[2020-08-02] MEDS ORDERED: Potassium Chloride Elixir 20 MEQ/15 ML UDC PO ONE ×2 (07:43→10:37)
[2020-08-02 10:09] VITALS: BP 136/70
[2020-08-02] MEDS: amLODIPine 5 MG TABLET PO SCH (10:10)
[2020-08-02] MEDS: Cefepime HCl 2,000 MG in Water for inj. (sterile) 20 ML IVP SCH (10:11)
== END 2020-08-02 16:06 | disposition home or self-care (01) ==
LOC: 3ANU 03:28 → EMEROOARM 03:28 → SUATTDRO 07:31 → 3ANU 08:07
PROVIDERS: ADMIT Student in an Organized Health Care Education/Training Program; ATTEND Internal Medicine